=== PATIENT | male | born 1950 | race Caucasian/White ===

== ENCOUNTER → 2016-10-14 | Outpatient (CLI) | payer BC, OTHER | LOC: M WUC 08:09 | PROVIDERS: ATTEND Nurse Practitioner Family | DX: N40.0 Benign prostatic hyperplasia without lower urinary tract symptoms (principal) ==

== ENCOUNTER 2016-11-30 21:29 | Inpatient (IN) | payer BC ==
[~2016-11-30] VITALS: Ht 172.7 cm; Wt 106.5 kg
[2016-11-30] MEDS: FAMOTIDINE IV BAG 20 MG in APPROPRIATE DILUENT 1 EA IV SCH (02:05)
[2016-11-30] MEDS ORDERED: FISH100049 PO (21:41)
[2016-11-30] MEDS ORDERED: MULTCAP11 PO (21:41)
[2016-11-30] MEDS ORDERED: LISI10TA4 PO (21:41)
[2016-11-30] MEDS ORDERED: EPINEPHrine INJ 1 MG/ML 1ML VIAL/AMP IM STA (22:05)
[2016-11-30] MEDS ORDERED: methylPREDNISolone INJ 125 MG/2 ML VIAL (J2930) IV ONE (22:15)
[2016-11-30] MEDS ORDERED: KETAMINE HCL 200 MG/20 ML VIAL As Ordered ONE (22:28)
[2016-11-30] MEDS ORDERED: MIDAZOLAM INJ 2 MG/2 ML VIAL (J2250) As Ordered ONE ×2 (22:28→23:28)
[2016-11-30] MEDS ORDERED: PROPOFOL 200 MG/20 ML VIAL As Ordered ONE ×2 (22:29→23:30)
[2016-11-30 22:33] VITALS: O2SAT 97
[2016-11-30] MEDS ORDERED: GLYCOPYRROLATE INJ 0.2 MG/ML 2 ML VIAL As Ordered ONE (22:33)
[2016-11-30] MEDS ORDERED: VITMTA PO (22:36)
[2016-11-30] MEDS ORDERED: ALEV220T26 PO (22:36)
[2016-11-30] MEDS ORDERED: BISACODYL 10 MG SUPP PR PRN (22:45)
[2016-11-30] MEDS ORDERED: ACETAMINOPHEN TAB 650MG DOSE (2X325MG) NG PRN (22:45)
[2016-11-30] MEDS ORDERED: ONDANSETRON 4MG/2ML VIAL (J2405) IV PRN (22:45)
[2016-11-30] MEDS ORDERED: LIDOCAINE W/EPINEPHRINE 1% 20ML VIAL As Ordered ONE (22:53)
[2016-11-30] MEDS ORDERED: MIDAZOLAM INJ 2 MG/2 ML VIAL (J2250) IV PRN (23:00)
[2016-11-30] MEDS ORDERED: ALBUTEROL SULFATE 2.5 MG/0.5 ML INH NEB SOLN NEB PRN (23:00)
[2016-11-30] MEDS ORDERED: diphenhydrAMINE INJ 50MG/ML VIAL (J1200) IV PRN (23:15)
[2016-11-30] MEDS ORDERED: PROPOFOL 1,000 MG/100 ML VIAL As Ordered ONE (23:42)
[2016-12-01] VITALS (18 sets, daily range): BP systolic 104–196; BP diastolic 60–103
[2016-12-01] MEDS ORDERED: ACETAMINOPHEN 650 MG SUPP PR PRN (00:30)
[2016-12-01] MEDS ORDERED: PHENYLephrine HCL 500 MCG/5 ML (100MCG/ML) SYRINGE (J2370) As Ordered ONE (01:12)
--- NOTE | 2016-12-01 01:20 | REPUSA ---
CLINICAL HISTORY: Tracheostomy tube placement. COMMENTS: AP view of chest reveals mild central pulmonary venous congestion. No focal consolidation or mass les ion is seen. The cardiac silhouette is enlarged. The mediastinum and pulmonary vessels appear normal. Aorta is tor tuous. Degenerative changes are noted in the thoracic spine. IMPRESSION: Mild pulmonary congestion. Enlarged cardiac silhouette. Tortuous aorta. Midline tracheostomy tube is in good position. Thank you for your kind referral of this patient.
[2016-12-01 01:54] LABS: BASO % 0.2 % (0.0-1.0); EOS # 0.1 K/mm3 (0.0-0.50); EOS % 0.7 % (0.0-3.0); LARGE UNSTAINED CELL # 0.1 K/mm3 (0.0-0.4); LARGE UNSTAINED CELL % 0.5 % (0.0-4.0); LYMPH # 0.8 K/mm3 (1.5-4.5); LYMPH % 5.8 % (24.0-44.0); MEAN CORPUSCULAR HEMOGLOBIN 28.1 pg (27.0-33.0); MEAN CORPUSCULAR HGB CONC 33.4 g/dl (32.0-36.5); MEAN CORPUSCULAR VOLUME 84.2 fl (80.0-96.0); MONO # 0.2 K/mm3 (0.0-0.8); MONO % 1.6 % (0.0-5.0); NEUTROPHILS # 12.8 K/mm3 (1.8-7.7); NEUTROPHILS % 91.1 % (36.0-66.0); PLATELET COUNT, AUTOMATED 213 k/mm3 (150-450); RED CELL DISTRIBUTION WIDTH 13.1 % (11.5-14.5)
[2016-12-01] MEDS: D5W/0.45% SODIUM CHLORIDE 1,000 ML IV SCH ×2 (01:58→14:31)
[2016-12-01] MEDS ORDERED: PROPOFOL 1,000 MG/100 ML VIAL As Ordered ONE (02:15)
[2016-12-01 02:18] LABS: ABG BASE EXCESS 1.5 (-2.0-2.0); ABG DEVICE MECHAN. VENT; ABG HCO3 25.6 MEQ/L (22.0-26.0); ABG PARTIAL PRESSURE CO2 38.6 mmHg (35.0-45.0); ABG PARTIAL PRESSURE O2 83.2 mmHg (75.0-100.0); ABG STANDARD HCO3 25.8 MEQ/L (22.0-26.0); ABG TOTAL CO2 26.8 MEQ/L (23.0-31.0); ABG pH (ARTERIAL) 7.439 UNITS (7.350-7.450)
[2016-12-01] MEDS: PROPOFOL 1,000 MG in APPROPRIATE DILUENT 1 EA IV SCH ×3 (02:21→07:10)
[2016-12-01 02:29] LABS: ALBUMIN 3.1 GM/DL (3.2-5.2); ALBUMIN/GLOBULIN RATIO 0.84 (1.00-1.93); ALKALINE PHOSPHATASE 93 U/L (45-117); ALT/SGPT 12 U/L (12-78); ANION GAP 9 MEQ/L (8-16); AST/SGOT 17 U/L (15-37); BILIRUBIN,TOTAL 0.4 MG/DL (0.2-1.0); BLOOD UREA NITROGEN 22 MG/DL (7-18); CALCIUM LEVEL 7.9 MG/DL (8.8-10.2); CARBON DIOXIDE LEVEL 25 MEQ/L (21-32); CHLORIDE LEVEL 110 MEQ/L (98-107); CHOLESTEROL LEVEL 156 MG/DL (< 200); CREATININE FOR GFR 1.54 MG/DL (0.70-1.30); GLOMERULAR FILTRATION RATE 48.7 (>49); GLUCOSE, FASTING 149 MG/DL (80-110); MAGNESIUM LEVEL 1.9 MG/DL (1.8-2.4); PHOSPHORUS LEVEL 1.3 MG/DL (2.5-4.9); POTASSIUM SERUM 3.9 MEQ/L (3.5-5.1); SODIUM LEVEL 144 MEQ/L (136-145); TOTAL PROTEIN 6.8 GM/DL (6.4-8.2); TRIGLYCERIDES LEVEL 147 MG/DL (<150)
[2016-12-01] MEDS: ALBUTEROL SULFATE 2.5 MG/0.5 ML INH NEB SOLN NEB SCH ×3 (03:41→07:53)
[2016-12-01] MEDS: HEPARIN SOD (PORCINE) 5000 UNITS/ML VIAL SC SCH ×3 (06:05→21:12)
[2016-12-01] MEDS ORDERED: CHLORHEXIDINE GLUCONATE 0.12 % 15ML UDC (PERIDEX ORAL RINSE) MT SCH (09:00)
[2016-12-01] MEDS: methylPREDNISolone INJ 125 MG/2 ML VIAL (J2930) IV SCH (09:00)
[2016-12-01] MEDS: MORPHINE 2 MG/ML 1ML SYRINGE IV PRN ×2 (09:25→14:30)
[2016-12-01] MEDS: FAMOTIDINE IV BAG 20 MG in APPROPRIATE DILUENT 1 EA IV SCH ×2 (10:43→23:21)
[2016-12-01] MEDS ORDERED: POTASSIUM PHOSPHATE INJ 18 MMOL in D5W 250 ML IV ONE (11:00)
--- NOTE | 2016-12-01 11:19 | REP ---
PORTABLE CHEST: AP portable view of the chest is performed and compared to prior study earlier today. The current study is performed at 10:58 a.m. There is cardiomegaly again noted as well as mild vascular congestion. No new infiltrates are seen. Tracheostomy tube is again noted. IMPRESSION: Stable exam. Signed by Dmitri Torres MD 12/01/2016 04:58 P
--- NOTE | 2016-12-01 12:26 | CR ---
DATE OF CONSULTATION: 11/30/2016 Patient Dani Eaton presents with a history of angioedema. Patient presented to the emergency department and was transferred up to the operating room. Patient apparently had not received lisinopril and had not had it for a year. He developed swelling an hour and a half prior to presenting. Examination shows that he has a very large tongue. Fiberoptic examination shows edema of the larynx. Patient was in some distress but had good saturations of oxygen. Because of these findings, it was elected to proceed with a tracheotomy under local anesthesia.
[2016-12-01] MEDS ORDERED: hydrALAZINE INJ 20 MG/ML VIAL IV ONE (12:30)
--- NOTE | 2016-12-01 12:42 | HPE ---
DATE OF ADMISSION: 11/30/2016 NOTE: I was asked by the emergency department to emergently evaluate Mr. Eaton for angioedema requiring airway management. Mr. Eaton is a 66-year-old white male with a past medical history significant for hypertension who was in his usual state of health today. This evening, he took his lisinopril and then had dinner. Very shortly after taking lisinopril, he felt that his tongue was starting to swell. He started to gag and then threw up once. He proceeded to the emergency department where his tongue was found to be quite enlarged. Per my conversation with the emergency department, he was not complaining of any shortness of breath, chest pain or other discomfort, but that he felt there was something in the back of his throat. He was taken to the operating room. They were unable to fiberoptically intubate him and he had an emergent tracheostomy. Intraoperatively, he became quite hypertensive and received 5 mg of labetalol. He currently has a tracheostomy in place and is on the ventilator and is synchronous with the ventilator. He is sedated. ALLERGIES: No known drug allergies. MEDICATIONS ON ADMISSION: - lisinopril 10 mg by mouth daily - fish oil one capsule by mouth daily - multivitamin one tablet by mouth daily - Aleve 440 mg by mouth daily as needed pain PAST MEDICAL HISTORY: 1. Hypertension. HABITS: He does not drink significant alcohol. He is a nonsmoker. I do not know if he previously smoked. SOCIAL/FAMILY/REVIEW OF SYSTEMS: Unobtainable secondary to tracheostomy and sedation. PHYSICAL EXAMINATION: General: Mr. Eaton is lying in bed with a new tracheostomy and synchronous with the ventilator. Vital signs: Blood pressure 90s/40s with a map of 66, pulse in the 80s, afebrile, SpO2 in the high 90s on a FiO2 of 0.5. HEENT: Anicteric, pupils 2-3 mm and reactive. Nares: Patent bilaterally, moist mucosa. Oral pharynx protuberant. Tongue with moist mucosa. Neck: Fresh tracheostomy in place without masses. Trachea is midline. He is currently lying flat and I cannot assess JVP. Lymphs: Without cervical or supraclavicular lymphadenopathy. Chest: Normal shape. Lungs: Symmetric excursion, good air entry, no wheeze, rhonchi or crackle on tidal excursion. Normal I:E. No accessory muscle uses or retractions. Cardiovascular: Regular rate and rhythm with normal S1, S2. No murmur, rub or gallop appreciated. Abdomen: Diminished but present bowel sounds, soft, nondistended, no hepatosplenomegaly or masses appreciated. Extremities: Warm and well perfused, without clubbing, cyanosis or edema, strong pedal pulses bilaterally. LABS: There are no labs. Labs had been ordered in the emergency department but were no drawn prior to his going to the operating room. I reviewed his chest x-ray. It showed normal appearing cardiac silhouette and pulmonary vascular shadows. No acute infiltrates. There is a tracheostomy in place. IMPRESSION: 1. Angioedema and causing an upper airway obstruction leading to tracheostomy. This is likely secondary to lisinopril. 2. Hypertension. RECOMMENDATIONS: 1. We will keep him sedated and on mechanical ventilation tonight. 2. Hopefully in the morning, we will be able to stop sedation and be able to change him over the trache dome. He does not appear to have any pulmonary reason to require a ventilator. 3. Will not pass an nasogastric (NG) tube tonight given his angioedema. I will place him on D5 half normal saline to provide some dextrose as well as some support for insensible losses. 4. Anticipate there will be significant improvement in the next 48 hours. If there is not, we will then need to consider placement of a feeding tube for us to provide nutrition versus TPN. Critical care time: 40 minutes not including procedure time.
[2016-12-01] MEDS: METOPROLOL 5 MG/5 ML VIAL IV SCH ×2 (13:30→18:09)
[2016-12-01] MEDS ORDERED: diphenhydrAMINE INJ 50MG/ML VIAL (J1200) IV PRN (16:00)
[2016-12-01] MEDS: hydrALAZINE INJ 20 MG/ML VIAL IV SCH ×2 (17:37→21:12)
--- NOTE | 2016-12-01 18:09 | RO ---
DATE OF PROCEDURE: 11/30/2016 PREPROCEDURE DIAGNOSIS: Angioedema. POSTPROCEDURE DIAGNOSIS: Angioedema. PROCEDURE: Tracheotomy. SURGEON: Dr. Ashwin Saini DISTRIBUTOR OF DIRECTORIES: ANESTHESIA: FINDINGS: The patient had a swollen tongue and an attempt was made a fiberoptic nasotracheal intubation. On examination, however, there was a lot of edema of the supraglottic area and the cords could not even be seen, so I elected to do a tracheotomy under local anesthesia. DESCRIPTION OF PROCEDURE: The patient was prepped and draped in the usual manner. I marked out the incision. I divided skin and subcutaneous tissues and fat. I dissected down to the cricoid. I then divided the strap muscles in the midline. I then divided down to the trachea. There was a large isthmus overlying it. I divided this with cautery. Once this was done, then I exposed the second tracheal ring, and I made an incision in trachea. I divided the ring and then elevated the trachea and inserted the tracheotomy tube, a #6 Shiley cuffed fenestrated tube. Once this was done, the retractors were removed. I then sutured the trachea in with a #2-0 silk suture. Once this was done, then the trach ties were applied in the usual fashion. Trach dressing was placed. The patient tolerated the procedure well. There was minimal blood loss. The patient was then transferred to the recovery room in excellent condition.
[2016-12-02] VITALS (9 sets, daily range): BP systolic 116–159; BP diastolic 65–87
[2016-12-02] MEDS: hydrALAZINE INJ 20 MG/ML VIAL IV SCH ×3 (01:00→08:47)
[2016-12-02] MEDS: METOPROLOL 5 MG/5 ML VIAL IV SCH ×2 (01:00→06:19)
[2016-12-02] MEDS: D5W/0.45% SODIUM CHLORIDE 1,000 ML IV SCH (05:09)
[2016-12-02] MEDS: HEPARIN SOD (PORCINE) 5000 UNITS/ML VIAL SC SCH ×3 (05:09→21:52)
[2016-12-02 05:14] LABS: BASO % 0.1 % (0.0-1.0); EOS # 0.1 K/mm3 (0.0-0.50); EOS % 0.2 % (0.0-3.0); LARGE UNSTAINED CELL # 0.4 K/mm3 (0.0-0.4); LARGE UNSTAINED CELL % 1.3 % (0.0-4.0); LYMPH # 1.5 K/mm3 (1.5-4.5); MEAN CORPUSCULAR HEMOGLOBIN 28.2 pg (27.0-33.0); MEAN CORPUSCULAR VOLUME 85.4 fl (80.0-96.0); MONO # 1.4 K/mm3 (0.0-0.8); MONO % 4.6 % (0.0-5.0); NEUTROPHILS # 26.2 K/mm3 (1.8-7.7); NEUTROPHILS % 88.8 % (36.0-66.0); PLATELET COUNT, AUTOMATED 219 k/mm3 (150-450); RED CELL DISTRIBUTION WIDTH 13.5 % (11.5-14.5); WHITE BLOOD COUNT 29.5 K/mm3 (4.0-10.0)
[2016-12-02 05:24] LABS: ALBUMIN 3.1 GM/DL (3.2-5.2); CALCIUM LEVEL 7.6 MG/DL (8.8-10.2); CREATININE FOR GFR 1.33 MG/DL (0.70-1.30); GLOMERULAR FILTRATION RATE 57.6 (>49); POTASSIUM SERUM 4.2 MEQ/L (3.5-5.1)
[2016-12-02] MEDS: methylPREDNISolone INJ 125 MG/2 ML VIAL (J2930) IV SCH (08:47)
--- NOTE | 2016-12-02 08:55 | ECGEPIP ---
Stationary ECG Study [facility] - ED Test Date: 2016-11-30 Pat Name: DEBBY FIGUEROA Department: Room: [place] [address] Gender: M Brokerage Clerk: chi : 1950 Requested By: NATALYA Morin Order Number: [id number] Reading MD: Landy Peter Measurements Intervals [place] Rate: 107 P: 70 CA: 150 QRS: -19 QRSD: 97 T: 29 QT: 328 QTc: 438 Interpretive Statements SINUS TACHYCARDIA WITH OCCASIONAL SUPRAVENTRICULAR PREMATURE COMPLEXES MINIMAL ST DEPRESSION ABNORMAL RHYTHM ECG BASELINE ARTIFACT LIMITS INTERPRETATION Electronically Signed On 12-02-2016 8:55:24 EST by Landy Peter
[2016-12-02] MEDS ORDERED: METOPROLOL TART 25 MG TABLET PO SCH (09:00)
[2016-12-02] MEDS: OMEPRAZOLE 20 MG CAP PO SCH (12:11)
[2016-12-02] MEDS ORDERED: PRED10TA PO (16:05)
[2016-12-02] MEDS ORDERED: ATEN25TA PO (16:05)
[2016-12-03] MEDS: HEPARIN SOD (PORCINE) 5000 UNITS/ML VIAL SC SCH (05:59)
[2016-12-03 06:00] VITALS: BP 142/82
[2016-12-03 06:09] LABS: ALBUMIN 3.1 GM/DL (3.2-5.2); CALCIUM LEVEL 8.6 MG/DL (8.8-10.2); CREATININE FOR GFR 1.42 MG/DL (0.70-1.30); GLOMERULAR FILTRATION RATE 53.4 (>49); PHOSPHORUS LEVEL 2.4 MG/DL (2.5-4.9)
[2016-12-03 06:10] LABS: BASO % 0.1 % (0.0-1.0); EOS # 0.2 K/mm3 (0.0-0.50); EOS % 0.9 % (0.0-3.0); LARGE UNSTAINED CELL # 0.3 K/mm3 (0.0-0.4); LARGE UNSTAINED CELL % 1.2 % (0.0-4.0); LYMPH # 2.4 K/mm3 (1.5-4.5); MEAN CORPUSCULAR HEMOGLOBIN 28.9 pg (27.0-33.0); MEAN CORPUSCULAR HGB CONC 34.1 g/dl (32.0-36.5); MEAN CORPUSCULAR VOLUME 84.8 fl (80.0-96.0); MONO # 1.1 K/mm3 (0.0-0.8); MONO % 4.7 % (0.0-5.0); NEUTROPHILS # 19.7 K/mm3 (1.8-7.7); NEUTROPHILS % 83.1 % (36.0-66.0); PLATELET COUNT, AUTOMATED 210 k/mm3 (150-450); RED CELL DISTRIBUTION WIDTH 13.5 % (11.5-14.5); WHITE BLOOD COUNT 23.7 K/mm3 (4.0-10.0)
[2016-12-03] MEDS ORDERED: TYLE650T35 PO (08:18)
[2016-12-03] MEDS ORDERED: ATENOLOL 25 MG TAB PO SCH (09:00)
[2016-12-03] MEDS: methylPREDNISolone INJ 125 MG/2 ML VIAL (J2930) IV SCH (09:00)
[2016-12-03 09:01] VITALS: BP 142/82
[2016-12-03] MEDS: OMEPRAZOLE 20 MG CAP PO SCH (09:01)
--- NOTE | 2016-12-03 12:16 | IPN ---
DATE: 12/02/2016 Patient seen and examined at bedside. Chart has been reviewed. Patient is anxious to go home. Currently with a trach collar, FiO2 of 40%. He is unable to speak and writes down his questions at the bedside on the clipboard. He is afebrile overnight. No issues per nursing. Continued on intravenous (IV) fluids and nothing by mouth status until re-evaluated by ENT, Dr. Saini. Temperature 98.5, pulse 87, respiratory rate 20, blood pressure 116/69, 96%, 40% FiO2, trach collar. Generally, patient is awake, alert, oriented and nods, unable to speak via trach. Anicteric sclera. Patent nares. Tongue was midline. Moist mucous membranes. The trach was midline. Lungs: Clear to auscultation. No wheezing, rales or rhonchi. Heart: S1, S2. Sinus rhythm. Abdomen: Obese, soft, nontender, nondistended. Positive bowel sounds. No hepatosplenomegaly. Extremities: No pitting edema, cyanosis or clubbing. LABORATORY DATA: White count 29.5, hemoglobin 14, hematocrit 44, platelet count 219. Sodium 145, potassium 4.2, chloride 110, bicarbonate 22, BUN 22, creatinine 1.3, glucose of 143. Phosphate 3, magnesium of 2, albumin of 3.1. MRSA screen pending. Respiratory panel is negative. Chest x-ray: Stable exam. ASSESSMENT AND PLAN: 66-year-old male with history of hypertension started on lisinopril and developed angioedema requiring emergency tracheostomy. Patient was quite hypertensive, was placed on IV labetalol. Trach placed. IMPRESSION: 1. Angioedema secondary to lisinopril. Patient had received emergency trach. Currently on IV Solu-Medrol to decrease laryngeal edema. Defer to Dr. Saini, ENT regarding decannulation and repeat laryngoscopy. 2. npo due to persistent laryngeal edema. Patient is continued on as needed Benadryl, famotidine, IV morphine - pain. IV fluid D5 normal saline 75 an hour for hydration. Keep nothing by mouth until safe and no signs of aspiration. Defer to Dr. Saini regarding change in diet. Currently nothing by mouth status. 3. Hypertension, uncontrolled. Nothing by mouth status for now due to laryngeal edema from angioedema caused by lisinopril. On IV Lopressor 5 every 6 hours and hydralazine. 4. Chronic kidney disease, stage III, at baseline creatinine. MTDD
--- NOTE | 2016-12-04 14:28 | DSES ---
DATE OF ADMISSION: 11/30/2016 DATE OF DISCHARGE: 12/03/2016 CONSULTANTS: Dr. Saini, ear, nose and throat; pulmonary capacity management specialist , Mariluz Garrett. PRIMARY DISCHARGE DIAGNOSES: 1. Angioedema secondary to lisinopril requiring tracheostomy placement for emergent airway. 2. Uncontrolled hypertension. 3. Chronic kidney disease. DISCHARGE MEDICATIONS: - atenolol 25 mg daily - prednisone tapered dose - fish oil one capsule daily - multivitamin one capsule daily DISCHARGE INSTRUCTIONS: Avoid all angiotension converting enzyme inhibitors due to angioedema causing restricted airway requiring emergent tracheostomy. PROCEDURES DURING THIS ADMISSION: Emergency tracheostomy secondary to angioedema by Dr. Saini on 11/30/2016 with fiberoptic laryngoscopy times two; one on 11/30/2016 and the other on 12/02/2016. HOSPITAL COURSE: This is a 66-year-old male with history of hypertension, hyperlipidemia, had been in his usual state of health until he was placed on lisinopril for blood pressure. Complained of tongue swelling, gagging and vomiting. Patient was seen in the emergency room on 11/30/2016. Dr. Garrett , capacity management specialist, was emergently contacted, as the patient was at risk of respiratory failure secondary to severe angioedema. Patient became hypertensive , receive 5 mg intravenous (IV) labetalol in the emergency room (ER). Emergent tracheostomy was placed by Dr. Saini. Patient was placed on ventilator with synchronous and was sedated and transferred to intensive care unit (ICU). Patient's angioedema cause upper airway obstruction, leading to emergent tracheostomy, most likely secondary to lisinopril. For hypertension, he was given intravenous metoprolol and IV hydralazine as needed. No nasogastric tube was given due to severe angioedema. He was kept on IV fluids with D5-half normal saline. On 12/02/2016, the patient was kept on IV Solu-Medrol daily to decrease edema. He had repeat laryngoscopy by Dr. Saini on 12/02/2016, was decannulated. Patient's diet was advanced. He had no further issues overnight. No complaints of shortness of breath, saturating 92% to 95% on room air with no stridor on examination. Patient is discharged in stable condition with the following laboratory data: White count 23.7, hemoglobin 15, hematocrit 44, platelet count 210. Sodium 148, potassium 4, chloride 112, bicarbonate 26, BUN 28, creatinine 1.42, glucose 111. MICROBIOLOGY: Methicillin-resistant Staphylococcus aureus (MRSA) and respiratory panel are both negative. Chest x-ray on 12/01/2016: No active disease. Midline tracheostomy tube is in good position. There is no active disease, mild pulmonary congestion and large cardiac silhouette. MTDD
== END 2016-12-03 10:06 | disposition home health service (06) | DRG 121 ==
LOC: M ED 22:28 → M ED INP 22:29 → M ICU 12-01 00:52 → M MS5PR 12-02 21:47
PROVIDERS: ADMIT Internal Medicine Pulmonary Disease; ATTEND General Practice
PROC: 0B110F4 Bypass Trachea to Cutaneous with Tracheostomy Device, Open Approach (ICD-10-PCS; 2016-11-30)
PROC: 5A1935Z Respiratory Ventilation, Less than 24 Consecutive Hours (ICD-10-PCS; principal; 2016-11-30 22:46)
DX: J98.8 Other specified respiratory disorders (principal); T78.3XXA Angioneurotic edema, initial encounter; N18.3 Chronic kidney disease, stage 3 (moderate); I12.9 Hypertensive chronic kidney disease with stage 1 through stage 4 chronic kidney disease, or unspecified chronic kidney disease; T46.4X5A Adverse effect of angiotensin-converting-enzyme inhibitors, initial encounter; Z79.899 Other long term (current) drug therapy; E78.5 Hyperlipidemia, unspecified

== ENCOUNTER → 2016-12-05 | Outpatient (REF) | payer BC ==
[~2016-12-05] MED LIST: ALEV220T26 PO; ATEN25TA PO; FISH100049 PO; LISI10TA4 PO; MULTCAP11 PO; PRED10TA PO; TYLE650T35 PO; VITMTA PO
== END ==
LOC: M LAB REF 10:55
PROVIDERS: ATTEND Nurse Practitioner Family
DX: I10 Essential (primary) hypertension (principal); Z93.0 Tracheostomy status; D72.829 Elevated white blood cell count, unspecified

== ENCOUNTER → 2016-12-08 | Outpatient (CLI) | payer BC ==
--- NOTE | 2016-12-08 13:36 | REP ---
Prostate sonography: History: Elevated PSA Sonographic findings: Trans rectal prostate sonography demonstrates unremarkable seminal vesicles. Prostate gland is heterogeneously enlarged with calcifications and cystic changes noted. Glandular dimensions are measured at 4.4 x 4.1 x 5.6 cm with a calculated glandular volume of 52.8 ml. Transrectal sonographic guidance provided to Dr. Lemon who performed trans rectal ultrasound guided needle biopsy procedure . Signed by Devin Bo MD 12/08/2016 01:27 P
== END ==
LOC: M SMT PRO 08:52
PROVIDERS: ATTEND Nurse Practitioner Women's Health
DX: C61 Malignant neoplasm of prostate (principal); Z88.8 Allergy status to other drugs, medicaments and biological substances
CPT/HCPCS: 76872; 76942; G0416

== ENCOUNTER → 2016-12-27 | Outpatient (CLI) | payer BC ==
[2016-12-27 16:04] LABS: MEAN CORPUSCULAR HEMOGLOBIN 28.5 pg (27.0-33.0); MEAN CORPUSCULAR HGB CONC 33.7 g/dl (32.0-36.5); MEAN CORPUSCULAR VOLUME 84.5 fl (80.0-96.0); RED CELL DISTRIBUTION WIDTH 13.1 % (11.5-14.5)
--- NOTE | 2016-12-27 16:10 | REP ---
CHEST, TWO VIEWS: COMPARISON: 07/30/2007 and 12/01/2016 There is no acute infiltrate. There is mild cardiomegaly. Mediastinal silhouette is unchanged. There are mild degenerative changes of the spine. IMPRESSION: No acute pulmonary disease. Signed by Dmitri Torres MD 12/27/2016 05:42 P
[2016-12-27 16:13] LABS: INR 1.03
[2016-12-27 16:14] LABS: CALCIUM LEVEL 8.6 MG/DL (8.8-10.2); CREATININE FOR GFR 1.39 MG/DL (0.70-1.30); GLOMERULAR FILTRATION RATE 54.8 (>49); POTASSIUM SERUM 3.7 MEQ/L (3.5-5.1)
--- NOTE | 2016-12-27 22:23 | ECGEPIP ---
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 Decreased heart rate, no PACs, improved repolarization compared with 11/30/2016. Electronically Signed On 12-27-2016 22:22:50 EDT by Juanpablo Mills
== END ==
LOC: M LAB 15:03
PROVIDERS: ATTEND Urology
DX: C61 Malignant neoplasm of prostate (principal)

== ENCOUNTER 2017-01-16 05:43 | Inpatient (IN) | payer BC ==
[2017-01-16] VITALS (9 sets, daily range): BP systolic 109–143; BP diastolic 57–93
[~2017-01-16] VITALS: Ht 172.7 cm; Wt 107.9 kg
[2017-01-16] MEDS ORDERED: LR 1,000 ML IV SCH ×3 (06:00→13:00)
[2017-01-16] MEDS ORDERED: PROPOFOL 200 MG/20 ML VIAL As Ordered ONE (06:49)
[2017-01-16] MEDS ORDERED: MIDAZOLAM INJ 2 MG/2 ML VIAL (J2250) As Ordered ONE (06:49)
[2017-01-16] MEDS ORDERED: fentaNYL 250 MCG/5 ML INJECTION (J3010) As Ordered ONE (06:49)
[2017-01-16] MEDS ORDERED: ROCURONIUM BROMIDE 50 MG/5 ML VIAL As Ordered ONE ×2 (06:49→08:39)
[2017-01-16] MEDS ORDERED: LIDOCAINE 2% INJ 100 MG/5 ML SDV (FOR ANES.) As Ordered ONE (06:50)
[2017-01-16] MEDS ORDERED: ATENOLOL 25 MG TAB PO ONE (07:30)
[2017-01-16] MEDS ORDERED: SUCCINYLCHOLINE 100 MG/5 ML SYRINGE (J0330) As Ordered ONE (07:36)
[2017-01-16] MEDS ORDERED: ATENOLOL 25 MG TAB PO SCH (09:00)
[2017-01-16] MEDS ORDERED: HYDROmorphone HCL 2 MG/ML 1ML VIAL (J1170) As Ordered ONE (09:35)
[2017-01-16] MEDS ORDERED: ePHEDrine SULFATE 25 MG/5 ML(5MG/ML) SYRINGE As Ordered ONE (09:56)
[2017-01-16] MEDS ORDERED: PHENYLephrine HCL 500 MCG/5 ML (100MCG/ML) SYRINGE (J2370) As Ordered ONE (09:56)
[2017-01-16] MEDS ORDERED: GLYCOPYRROLATE INJ 0.2 MG/ML 2 ML VIAL As Ordered ONE (11:03)
[2017-01-16] MEDS ORDERED: ONDANSETRON 4MG/2ML VIAL (J2405) As Ordered ONE (11:03)
[2017-01-16] MEDS ORDERED: NEOSTIGMINE 1MG/ML 5 ML SYRINGE (J2710) As Ordered ONE (11:03)
[2017-01-16] MEDS ORDERED: NALOXONE INJ 0.4 MG/1 ML VIAL (J2310) As Ordered ONE (12:10)
[2017-01-16] MEDS ORDERED: HYDROmorphone HCL 1 MG/ML SYRINGE (J1170) As Ordered ONE (12:46)
[2017-01-16] MEDS: HYDROmorphone HCL 1 MG/ML SYRINGE (J1170) IV PRN ×4 (12:48→14:15)
[2017-01-16] MEDS ORDERED: MEPERIDINE INJ 25 MG/ML VIAL (J2175) IV PRN (13:00)
[2017-01-16] MEDS ORDERED: ONDANSETRON 4MG/2ML VIAL (J2405) IV PRN ×2 (13:00→13:30)
[2017-01-16] MEDS ORDERED: METOCLOPRAMIDE INJ 10MG/2ML VIAL (J2765) IV PRN (13:00)
[2017-01-16] MEDS ORDERED: fentaNYL 100 MCG/2 ML INJECTION (J3010) IV PRN (13:00)
[2017-01-16] MEDS ORDERED: PERCOCET 5MG/325MG TAB PO PRN (13:00)
[2017-01-16 13:04] LABS: ABG BASE EXCESS -4.2 (-2.0-2.0); ABG HCO3 22.8 MEQ/L (22.0-26.0); ABG PARTIAL PRESSURE CO2 49.2 mmHg (35.0-45.0); ABG PARTIAL PRESSURE O2 94.7 mmHg (75.0-100.0); ABG TOTAL CO2 24.3 MEQ/L (23.0-31.0); ABG pH (ARTERIAL) 7.284 UNITS (7.350-7.450)
[2017-01-16 13:08] LABS: MEAN CORPUSCULAR HEMOGLOBIN 28.7 pg (27.0-33.0); MEAN CORPUSCULAR HGB CONC 32.8 g/dl (32.0-36.5); MEAN CORPUSCULAR VOLUME 87.4 fl (80.0-96.0); RED CELL DISTRIBUTION WIDTH 13.6 % (11.5-14.5); WHITE BLOOD COUNT 20.2 K/mm3 (4.0-10.0)
--- NOTE | 2017-01-16 13:18 | REP ---
PORTABLE CHEST: AP portable view of the chest is performed and compared to prior study of 12/27/2016. No infiltrate is seen in either lung. Cardiomediastinal silhouette appears magnified. Free air is seen in the abdomen beneath the right diaphragm, presumably postsurgical. Signed by Dmitri Torres MD 01/16/2017 05:25 P
[2017-01-16] MEDS ORDERED: KCL 20MEQ IN D5/.45NACL 1000ML As Ordered ONE (13:22)
[2017-01-16] MEDS ORDERED: KETOROLAC 30 MG/ML VIAL (J1885) As Ordered ONE (13:22)
[2017-01-16 13:28] LABS: CALCIUM LEVEL 8.9 MG/DL (8.8-10.2); CREATININE FOR GFR 1.3 MG/DL (0.70-1.30); GLOMERULAR FILTRATION RATE 59.2 (>49); POTASSIUM SERUM 4.2 MEQ/L (3.5-5.1)
[2017-01-16] MEDS: KETOROLAC 30 MG/ML VIAL (J1885) IV SCH ×2 (13:33→23:29)
[2017-01-16] MEDS: KCL 20MEQ IN D5/0.45NS 1000ML 1,000 ML IV SCH ×2 (13:34→21:33)
[2017-01-16] MEDS ORDERED: LABETALOL HCL 100 MG/20 ML VIAL IV SCH (13:45)
[2017-01-16] MEDS ORDERED: LABETALOL HCL 100 MG/20 ML VIAL IV ONE (14:00)
[2017-01-16] MEDS: PANTOPRAZOLE 40MG INJ (PROTONIX) (C9113) IV SCH (16:17)
[2017-01-16] MEDS: ACETAMINOPHEN 650MG ER TAB (TYLENOL ARTHRITIS) PO SCH ×2 (17:13→21:33)
[2017-01-16] MEDS: LevoFLOXacin 500 MG TABLET PO SCH (17:13)
--- NOTE | 2017-01-16 17:46 | CCN ---
DATE: 01/16/2017 CRITICAL CARE NOTE I was called to evaluate this 66-year-old male for acute respiratory failure in recovery room, successfully having completed a robotic prostatectomy. In the recovery room, the patient was found to be hypoxic and hypoventilatory. Noninvasive positive pressure ventilation has been applied. On review of the patient's electronic health record, there is a history of hypertension, recently suffered angioedema secondary to angiotensin-converting enzyme (CHLOE) inhibitors and required a tracheostomy on 12/01. The tracheostomy was removed and he was sent home. He has chronic kidney disease as well. At bedside, his temperature is 96.9, pulse rate 75, respirations 20, blood pressure 130/75. He is somnolent. HEENT: Oral and nasal mucosa are pink. Jugular veins are not distended. Neck is quite stovall. The heart sounds are regular without appreciable murmur. There is subcutaneous air appreciable in the chest wall, none dissecting in the neck. Breath sounds are diminished bilaterally. There are no focal adventitial breath sounds appreciated. Abdomen is soft and obese. Extremities: Show trace edema. DIAGNOSTIC STUDIES: We obtained a stat portable chest x-ray at the bedside. There is no evidence of pneumothorax and no evidence of infiltrate. LABORATORY STUDIES: White cell count is 20.2, hemoglobin 14.6, hematocrit 44.6, platelet count 192,000. Sodium is 141, potassium 4.2, chloride 106, CO2 30, BUN 13, creatinine 1.3, glucose 123. An arterial blood gas was obtained. The pH was 7.28, pCO2 49, pO2 97. The primary problem requiring critical attention is acute respiratory failure. Noninvasive positive pressure ventilation will be adjusted based on the blood gases to increase minute ventilation and will make arrangements for him to be transferred now to the intensive care unit. Subcutaneous air. I suspect that this is likely related to insufflation of the abdomen for the procedure. There is no pneumothorax on the chest x-ray. Close monitoring will be necessary. ANGIOTENSIN-CONVERTING ENZYME (CHLOE) ALLERGY with angioedema requiring tracheostomy on 12/01. The neck site is clean and dry. Ulcer prophylaxis will be addressed with Protonix, deep vein thrombosis (DVT) prophylaxis with sequential hose. The patient's condition is critical. Prognosis is guarded. 1 hour and 15 minutes was spent in the provision of bedside critical care and coordination.
[2017-01-16] MEDS: MORPHINE 4 MG/ML 1ML SYRINGE IV PRN ×2 (17:51→23:55)
--- NOTE | 2017-01-16 20:03 | RO ---
DATE OF PROCEDURE: 01/16/2017 PREOPERATIVE DIAGNOSIS: Prostate cancer. POSTOPERATIVE DIAGNOSIS: Prostate cancer. SURGERY PERFORMED: Robotic-assisted radical prostatectomy plus bilateral pelvic lymph node dissection. SURGEON: Haroon Lemon MD PCB DESIGNER: Constanza Polanco SECOND NUTRITION COUNSELOR: Tj Lao ANESTHESIA: General. COMPLICATIONS: None. ESTIMATED BLOOD LOSS: 400 mL HISTORY OF PRESENT ILLNESS: This is a 66-year-old male patient with clinical stage [id number] prostate cancer, Andrez 7, (3+4). The patient has consented for a robotic-assisted radical prostatectomy, plus bilateral pelvic lymph node dissection. Of note, the patient has a sexual health inventory for men (KRIS) score 1 point. PROCEDURE DESCRIPTION: With the patient under general anesthesia in supine modified low lithotomy position, after prepping and draping the area of concern, which included the entire genitalia and abdomen, we started by dilating the urethra with Tien sounds and passed a Dawkins catheter #16-Slovak Dawkins, inflated the balloon to 10 mL and placed it to gravity. We then proceeded to do an incision infraumbilically for about 2 cm in length. We opened the fascia of the rectus muscle 2 cm vertically in the midline below the umbilicus and then opened the peritoneal cavity, opened the extraperitoneal space, balloon SpaceMaker. With dissected the extraperitoneal space of Retzius. We then proceeded to actually place a trocar and inflated the balloon trocar to 20 mL. We insufflated the retroperitoneal space of Retzius at a maximum pressure of 20 at high flow. With a hand held robotic camera with 30 degrees lens, we placed the other trocars in fan shaped manner, two on the right side, 8 mm metallic trocars by each other, 8 cm away from each other and two on the left side, one 12 mm VersaStep 6 cm away from the midline and 8 cm away from this one, another 8 mm metallic trocar in fan shaped manner. We then positioned the patient and steep Trendelenburg position and docked the robot. On the left hand we used monopolar scissors, on the right hand we used bipolar PK and a ProGrasp. We then proceeded to actually dissect the periprostatic fat and uncovered the prostate completely off of the periprostatic fat. We then proceeded to actually dissect and open the endopelvic fascia from base to apex and then placed a dorsal vein stitch with a CT-1 needle and a #0 Vicryl times three. We then proceeded to open the anterior bladder neck with monopolar scissors and deflated the balloon and grabbed the Dawkins catheter and put it to traction with the third arm. We then cut the posterior bladder neck and the posterior detrusor muscle following into the vas deferens. We dissected both vas deferens and cut them with monopolar scissors. We grabbed them with a third arm and put the vas deferens under traction anteriorly, this placed in the direction of the direction of the vas seminal vesicles. We dissected each seminal vesicle and fulgurated the bleeding vessels. We grabbed the seminal vesicles and the vas deferens with the third arm anteriorly and put this placed into traction, the posterior Denonvilliers fascia. We then incised the posterior Denonvilliers fascia with monopolar scissors. We dissected the rectum away from base to apex and then secured the pedicles of the prostate with Hem-o-Loks clipper pliers. We then proceeded to actually dissect the prostate from base to apex. Once the prostate was attached to the dorsal vein complex we cut the dorsal vein complex, cut the urethra and removed the Dawkins. The prostate was placed into a 10 mm Endo Catch bag. We then proceeded to do our posterior reconstruction with two needle holders and a #2-0 V-Loc in a running fashion. We reconstructed the posterior Denonvilliers fascia in a running fashion. We then proceeded to place out double needle Quill stitch, #2-0 barbed suture, absorbable, started at 6-o'clock in the bladder neck, outside in and inside out in the urethra in running 360 degrees around the clock. We then placed a #20-Slovak Dawkins catheter into the bladder and inflated the balloon to 20 mL and tied the knot of the Quill stitch and cut the needles, took the needles out. We tested anastomosis by placing 200 mL of normal saline. There was no leak. We then proceeded to actually dissect the pelvic lymph nodes bilaterally. Our limits of dissection were inferiorly, the lacunar ligament, medially the bladder, posteriorly the pelvic sidewall, superiorly the bifurcation of hypogastric arteries, anteriorly the iliac artery. We secured hemostasis with bipolar PK and Hem-o-Loks. We placed in a 10 mm Endo Catch bag, the pelvic lymph node dissection on the left side as well as on the right side. We then proceeded to undock the third arm and took the third instrument out. Through the third port on the right side we introduced a GORAN drain, a round drain into the pelvic Retzius space. We then proceeded to actually remove the trocar and suture secured the drain with #3-0 nylon and placed the drain to bulb suction. We then took all the trocars out and took the specimens through the midline, the prostate and seminal vesicles in one Endo Catch bag. The left pelvic lymph node dissection in separate Endo Catch bag and the right pelvic lymph node dissection in another separate Endo Catch bag. We then closed the anterior fascia of the rectus muscle in a running fashion with a UR6 #2-0 Vicryl in a running fashion. We then closed the skin with subcuticular stitches of #4-0 Monocryl. We placed Mastisol, Steri-Strips and Tegaderm on top of the incision site. PLAN: The patient will be go to the recovery room and then to the floor. Once he is tolerating pain and ambulating very well he will be discharged home.
[2017-01-17] VITALS (8 sets, daily range): BP systolic 96–138; BP diastolic 55–83
[2017-01-17] MEDS: ACETAMINOPHEN 650MG ER TAB (TYLENOL ARTHRITIS) PO SCH ×2 (05:28→13:30)
[2017-01-17] MEDS: KCL 20MEQ IN D5/0.45NS 1000ML 1,000 ML IV SCH ×2 (05:29→14:53)
[2017-01-17 05:34] LABS: CALCIUM LEVEL 7.4 MG/DL (8.8-10.2); CREATININE FOR GFR 1.34 MG/DL (0.70-1.30); GLOMERULAR FILTRATION RATE 57.1 (>49)
[2017-01-17 05:36] LABS: MEAN CORPUSCULAR VOLUME 89.1 fl (80.0-96.0); WHITE BLOOD COUNT 12.4 K/mm3 (4.0-10.0)
[2017-01-17 05:47] LABS: ABG BASE EXCESS 0.7 (-2.0-2.0); ABG HCO3 25.4 MEQ/L (22.0-26.0); ABG PARTIAL PRESSURE CO2 40.9 mmHg (35.0-45.0); ABG PARTIAL PRESSURE O2 111.8 mmHg (75.0-100.0); ABG STANDARD HCO3 25.2 MEQ/L (22.0-26.0); ABG TOTAL CO2 26.7 MEQ/L (23.0-31.0); ABG pH (ARTERIAL) 7.411 UNITS (7.350-7.450)
[2017-01-17 06:14] LABS: MEAN CORPUSCULAR HEMOGLOBIN 29.3 pg (27.0-33.0); MEAN CORPUSCULAR HGB CONC 33.3 g/dl (32.0-36.5); RED CELL DISTRIBUTION WIDTH 13.8 % (11.5-14.5)
--- NOTE | 2017-01-17 08:04 | REP ---
Clinical: Pneumoperitoneum. Comparison: 01/16/2017. Findings: Mediastinum and cardiac silhouette stable; mild cardiomegaly. Lung clifford suggest mild interstitial edema and possible right lower lobe atelectasis. Pneumoperitoneum again noted similar/improved when compared to prior examination. Impression: Cannot exclude interstitial edema or right lower lobe atelectasis. Pneumoperitoneum again noted. Signed by Gregory Ruano MD 01/17/2017 07:56 A
[2017-01-17] MEDS: KETOROLAC 30 MG/ML VIAL (J1885) IV SCH (08:39)
[2017-01-17] MEDS ORDERED: ATENOLOL 25 MG TAB PO SCH (09:00)
[2017-01-17] MEDS: PANTOPRAZOLE 40MG INJ (PROTONIX) (C9113) IV SCH (14:57)
[2017-01-17] MEDS ORDERED: LEVA500T PO (16:30)
[2017-01-17] MEDS: LevoFLOXacin 500 MG TABLET PO SCH (17:25)
--- NOTE | 2017-01-18 07:01 | DSES ---
DATE OF ADMISSION: 01/16/2017 DATE OF DISCHARGE: 01/17/2017 ADMISSION DIAGNOSIS: Prostate cancer. DISCHARGE DIAGNOSIS: Prostate cancer. SURGERY PERFORMED: Robotic-assisted radical prostatectomy, plus bilateral pelvic lymph node dissections. SURGEON: Dr. Haroon Lemon. HISTORY OF PRESENT ILLNESS: This is a 66-year-old male patient with a clinical state CT1c NX MX prostate cancer, [place] 7, 3 plus 4. The patient consented for robotic-assisted radial prostatectomy plus bilateral pelvic lymph node dissections, and he was taken to the operating room (OR) on 01/16/2017. After this procedure, he was admitted to the hospital. HOSPITALIZATION COURSE: The patient after surgery was extubated and in the recovery had respiratory distress requiring bilevel positive airway pressure (BiPAP). For this reason, consultation to pulmonary critical care was conducted, and after evaluating the patient, he was admitted to the surgical intensive care unit (SICU) for 23-hour observation. In the SICU about four hours after BiPAP, he was discontinued and put on room air and was respirating well. He has a history of having had a tracheostomy due to LISINOPRIL ALLERGY one month ago. He is also morbidly obese. After that, he started tolerating a regular diet six hours after surgery. He was out of bed and ambulating very well. On postoperative day one, he is ambulating very well with assistance. Dawkins catheter was draining clear urine. Devin-Lucero (GORAN) output was 40 mL in the last shift. He was tolerating a regular diet, and pain was controlled with oral pain medication Tylenol Extended Release. For this reason, the patient requested to go home and we agreed upon this after the pulmonary critical care actually signed off. For this reason we are sending him home today with antibiotic Levaquin 500 mg one tablet by mouth every day and Tylenol 650 mg extended release one tablet by mouth every six hour as needed for pain. He will have Dawkins catheter to gravity. He may shower. No sitz bath. No driving for two weeks. No heavy weight lifting above 20 pounds for one month. He will followup in 10 days for a voiding trial. His pathology report has come back. He has a PT3a N0 MX adenocarcinoma of the prostate gland, [place] 8. Margins were negative.
== END 2017-01-17 17:35 | disposition home or self-care (01) | DRG 484 ==
LOC: M OR 05:43 → M ICU 15:03
PROVIDERS: ADMIT Urology; ATTEND Urology
PROC: 07BC4ZX Excision of Pelvis Lymphatic, Percutaneous Endoscopic Approach, Diagnostic (ICD-10-PCS; 2017-01-16)
PROC: 0VT04ZZ Resection of Prostate, Percutaneous Endoscopic Approach (ICD-10-PCS; principal; 2017-01-16 07:30)
DX: C61 Malignant neoplasm of prostate (principal); J95.821 Acute postprocedural respiratory failure

== ENCOUNTER → 2017-01-30 | Outpatient (CLI) | payer BC ==
[~2017-01-30] MED LIST changes: +LEVA500T PO
== END ==
LOC: M WUC 09:19
PROVIDERS: ATTEND Nurse Practitioner Women's Health
DX: C61 Malignant neoplasm of prostate (principal)

== ENCOUNTER → 2017-02-05 | Outpatient (CLI) | payer BC ==
--- NOTE | 2017-02-05 13:36 | REP ---
Whole body radionuclide bone scan: History: Prostate carcinoma. No comparison bone scans. Technique: 20.7 millicuries technetium 99m MDP is injected and standard whole body bone scan imaging was acquired. Scintigraphic findings: There is degenerative facet uptake in the right side of the mid cervical spine and to a lesser extent in the right side of the mid thoracic spine. There is mild arthritic uptake in the acromioclavicular joints bilaterally. There is increased uptake in the posterior calcaneus on the right at the Achilles calcaneal insertion. Minimal uptake on the left at this level. Impression: No scintigraphic evidence of skeletal metastatic disease. Signed by Devin Bo MD 02/05/2017 03:17 P
== END ==
LOC: M RAD 09:20
PROVIDERS: ATTEND Nurse Practitioner Women's Health
DX: C61 Malignant neoplasm of prostate (principal)

== ENCOUNTER → 2017-02-17 | Outpatient (REF) | payer BC | LOC: M LAB REF 14:00 | PROVIDERS: ATTEND Nurse Practitioner Women's Health | DX: C61 Malignant neoplasm of prostate (principal) ==

== ENCOUNTER → 2017-04-17 | Outpatient (REF) | payer BC ==
[~2017-04-17] MED LIST changes: +LEVA1TAB2 PO; -LEVA500T PO; -PRED10TA PO; +PRED10TA2 PO
== END ==
LOC: M SMT 16:16
PROVIDERS: ATTEND Urology
DX: R30.0 Dysuria (principal)

== ENCOUNTER → 2017-04-20 | Outpatient (REF) | payer BC | LOC: M SMT 13:09 | PROVIDERS: ATTEND Nurse Practitioner Women's Health | DX: R30.0 Dysuria (principal) ==

== ENCOUNTER → 2017-05-19 | Outpatient (CLI) | payer BC | LOC: M WUC 08:26 | PROVIDERS: ATTEND Urology | DX: C61 Malignant neoplasm of prostate (principal) ==

== ENCOUNTER → 2017-05-30 | Outpatient (REF) | payer BC | LOC: M SMT 17:11 | PROVIDERS: ATTEND Urology | DX: C61 Malignant neoplasm of prostate (principal) ==

== ENCOUNTER → 2017-08-11 | Outpatient (CLI) | payer BC | LOC: M WUC 08:13 | PROVIDERS: ATTEND Urology | DX: C61 Malignant neoplasm of prostate (principal) ==

== ENCOUNTER → 2017-11-09 | Outpatient (CLI) | payer BC ==
[2017-11-09 20:07] LABS: PROSTATIC SPECIFIC AG MONITOR < 0.01 NG/ML (< 4.0)
== END ==
LOC: M WUC 15:40
DX: Z85.46 Personal history of malignant neoplasm of prostate (principal)
CPT/HCPCS: 84153

== ENCOUNTER → 2018-02-25 | Outpatient (CLI) | payer BC ==
[2018-02-25 09:38] LABS: ALBUMIN 3.5 GM/DL (3.2-5.2); ALBUMIN/GLOBULIN RATIO 0.92 (1.00-1.93); ALKALINE PHOSPHATASE 103 U/L (45-117); ALT/SGPT 19 U/L (12-78); ANION GAP 6 MEQ/L (8-16); AST/SGOT 23 U/L (7-37); BILIRUBIN,TOTAL 0.8 MG/DL (0.2-1.0); BLOOD UREA NITROGEN 14 MG/DL (7-18); CALCIUM LEVEL 8.8 MG/DL (8.8-10.2); CARBON DIOXIDE LEVEL 29 MEQ/L (21-32); CHLORIDE LEVEL 108 MEQ/L (98-107); CHOLESTEROL LEVEL 174 MG/DL (<200); CHOLESTEROL RISK RATIO 4.833 (<5); CREATININE FOR GFR 1.24 MG/DL (0.70-1.30); GLOMERULAR FILTRATION RATE > 60.0 (>49); GLUCOSE, FASTING 111 MG/DL (70-100); HDL CHOLESTEROL 36 MG/DL (>40); LDL CHOLESTEROL 116.6 MG/DL (<100); NON-HDL-C 138 MG/DL; POTASSIUM SERUM 4.2 MEQ/L (3.5-5.1); PROSTATIC SPECIFIC AG MONITOR < 0.01 NG/ML (< 4.0); SODIUM LEVEL 143 MEQ/L (136-145); TOTAL PROTEIN 7.3 GM/DL (6.4-8.2); TRIGLYCERIDES LEVEL 107 MG/DL (<150)
== END ==
LOC: M WUC 08:18
DX: I10 Essential (primary) hypertension (principal); Z85.46 Personal history of malignant neoplasm of prostate
CPT/HCPCS: 80053

== ENCOUNTER → 2018-05-29 | Outpatient (CLI) | payer BC ==
[2018-05-29 10:26] LABS: PROSTATIC SPECIFIC AG MONITOR < 0.01 NG/ML (< 4.0)
== END ==
LOC: M WUC 08:21
DX: Z85.46 Personal history of malignant neoplasm of prostate (principal)
CPT/HCPCS: 84153

== ENCOUNTER 2018-06-19 16:10 | Emergency (ER) | payer BC ==
[2018-06-19] MEDS: LORazepam 2 MG/ML VIAL (J2060) IV ×2 (18:14→19:31)
[2018-06-19] MEDS: MECLIZINE 25 MG TABLET PO (18:14)
== END 2018-06-19 20:35 | disposition home or self-care (01) ==
LOC: M ED 16:10
DX: H81.10 Benign paroxysmal vertigo, unspecified ear (principal); I12.9 Hypertensive chronic kidney disease with stage 1 through stage 4 chronic kidney disease, or unspecified chronic kidney disease; N18.9 Chronic kidney disease, unspecified; Z85.46 Personal history of malignant neoplasm of prostate; Z88.8 Allergy status to other drugs, medicaments and biological substances; Z88.6 Allergy status to analgesic agent; Z79.899 Other long term (current) drug therapy
CPT/HCPCS: J2060

== ENCOUNTER → 2018-09-03 | Outpatient (CLI) | payer BC ==
[2018-09-03 09:42] LABS: PROSTATIC SPECIFIC AG MONITOR < 0.0 NG/ML (< 4.0)
== END ==
LOC: M WUC 08:04
DX: Z85.46 Personal history of malignant neoplasm of prostate (principal)
CPT/HCPCS: 84153

== ENCOUNTER → 2018-11-27 | Outpatient (CLI) | payer BC ==
[~2018-11-27] MED LIST changes: +ATIV1TAB7 PO; +MECL1CHW2 PO; +ONDA4TAB6 PO
== END ==
LOC: M WUC 08:07
PROVIDERS: ATTEND Nurse Practitioner Women's Health
DX: Z85.46 Personal history of malignant neoplasm of prostate (principal)

== ENCOUNTER → 2019-03-20 | Outpatient (CLI) | payer BC ==
[~2019-03-20] MED LIST changes: +MECL1CHW PO; -MECL1CHW2 PO
[2019-03-20 09:38] LABS: ALBUMIN 3.2 GM/DL (3.2-5.2); BILIRUBIN,TOTAL 1.2 MG/DL (0.2-1.0); CALCIUM LEVEL 8.9 MG/DL (8.8-10.2); CHOLESTEROL RISK RATIO 4.736 (<5); CREATININE FOR GFR 1.44 MG/DL (0.70-1.30); GLOMERULAR FILTRATION RATE 52.3 (>49); PROSTATIC SPECIFIC AG MONITOR 0.09 NG/ML (< 4.00)
== END ==
LOC: M WUC 08:04
PROVIDERS: ATTEND Nurse Practitioner Family
DX: C61 Malignant neoplasm of prostate (principal); I10 Essential (primary) hypertension

== ENCOUNTER 2019-06-14 17:45 | Emergency (ER) | payer BC ==
[~2019-06-14] VITALS: Ht 172.7 cm; Wt 106.0 kg
[2019-06-14] MEDS ORDERED: TRAM50TA2 (18:10)
[2019-06-14] MEDS ORDERED: TIZA4TAB4 (18:10)
[2019-06-14] MEDS ORDERED: diazePAM 10 MG/2 ML INJ (J3360) IV ONE (18:30)
--- NOTE | 2019-06-14 19:22 | REPVR ---
PROCEDURE INFORMATION: Exam: CT Chest Without Contrast Exam date and time: 06/14/2019 6:37 PM Clinical history: 69 years old, male; Pain; Other: Rib; Additional info: Right posterior rib pain TECHNIQUE: Imaging protocol: Computed tomography of the chest without contrast. 3D rendering: MIP reconstructed images were created and reviewed. Radiation optimization: All CT scans at this facility use at least one of these dose optimization techniques: automated exposure control; mA and/or kV adjustment per patient size (includes targeted exams where dose is matched to clinical indication); or iterative reconstruction. COMPARISON: CR PORTABLE CHEST X-RAY 01/17/2017 6:58 AM FINDINGS: Lungs: Linear atelectasis and/or scar in the lung bases. No pulmonary consolidation. Pleural space: Unremarkable. No pneumothorax. No pleural effusion. Heart: Minimal coronary atherosclerosis. Aorta: Mild atherosclerosis of the thoracic aorta. No aneurysm. Lymph nodes: Unremarkable. No enlarged lymph nodes. Bones/joints: No fracture or focal rib lesion. Degenerative spondylosis of the thoracic spine. Soft tissues: Unremarkable. IMPRESSION: 1. Linear atelectasis and/or scar in the lung bases. 2. Degenerative spondylosis of the thoracic spine. 3. No fracture or focal rib lesion. If there is a concern for occult skeletal abnormality then consider followup evaluation with radionuclide bone scan. Electronically signed by: Go Islas On 06/14/2019 19:22:20 PM
[2019-06-14] MEDS ORDERED: VALI2TAB PO (19:52)
[2019-06-14] MEDS ORDERED: diazePAM 2 MG TAB PO SCH (20:00)
[2019-06-14 20:19] VITALS: BP 135/87
== END 2019-06-14 20:25 | disposition home or self-care (01) ==
LOC: M ED 17:45
DX: M62.830 Muscle spasm of back (principal); I12.9 Hypertensive chronic kidney disease with stage 1 through stage 4 chronic kidney disease, or unspecified chronic kidney disease; N18.9 Chronic kidney disease, unspecified; Z79.899 Other long term (current) drug therapy; Z88.8 Allergy status to other drugs, medicaments and biological substances
CPT/HCPCS: 71250; 80047; 96374; 99284; J3360

== ENCOUNTER → 2019-07-01 | Outpatient (CLI) | payer BC ==
[~2019-07-01] MED LIST changes: +TIZA4TAB4; +TRAM50TA2; +VALI2TAB PO
== END ==
LOC: M WUC 08:07
PROVIDERS: ATTEND Nurse Practitioner Women's Health
DX: Z85.46 Personal history of malignant neoplasm of prostate (principal)

== ENCOUNTER → 2019-07-25 | Outpatient (CLI) | payer BC ==
--- NOTE | 2019-07-28 09:02 | RADONC ---
RADIATION ONCOLOGY CONSULTATION NOTE DATE: 07/25/2019 CHART NUMBER: [id number] DIAGNOSIS: Prostate cancer. STAGE: IIIB, T3a,N0,M0, initial PSA 4.17, [place] score 8 (3-5), grade group 4. ECOG PERFORMANCE STATUS: 0. CONSULTATION NOTE: Mr. 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 HISTORY OF PRESENT ILLNESS: The patient was in his usual state of health and was found to have a PSA level of 4.17 on October 14, 2016. On 01/16/2017 the patient underwent a robotic-assisted radical prostatectomy and pelvic lymph node sampling. Pathology revealed a poorly differentiated [place] score 8 (3-5) adenocarcinoma of the prostate. It was noted that some [place] pattern 4 was there potentially increasing the total [place] score to 9. The tumor involved the bilateral prostate and occupies 30% of the right gland and 10% of the left prostate. Perineural invasion was noted. No extracapsular extension was noted. The pattern of Andrez 5 tumor extended to the bladder neck smooth muscle. No seminal and vesical involvement was seen. A total of one right pelvic lymph node was sampled and was negative for malignancy and three left pelvic lymph nodes were sampled and were also negative for malignancy. The patient therefore was staged as having a pathologic T3a, N0, M0 poorly differentiated adenocarcinoma of prostate. Since his surgery he has been followed with routine PSAs which had been running less than 0.01 from 02/17/[address] until 11/27/2018 when it had raised up to 0.04. Three months later on 03/20/2019 it had risen to 0.09 and on 07/01/2019 it had reached a level of 0.23. 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 He is now presenting to us for consideration of definitive external beam radiation therapy. PAST MEDICAL HISTORY: The patient's past medical history is positive for hypertension, shingles, cellulitis, hyperlipidemia, as well as his prostate cancer. He has had his hernia repair in the past. ALLERGIES: The patient is allergic to LISINOPRIL. SOCIAL HISTORY: The patient does not smoke cigarettes nor abuse alcohol. FAMILY HISTORY: The patient's family history is positive for father with prostate cancer and brother with non-Hodgkin's lymphoma. REVIEW OF SYSTEMS: The patient's review of systems is noncontributory. He denies nausea, vomiting, fevers, chills, night sweats, diplopia, headaches, anxiety or depression, anorexia, weight loss, visual disturbances, chest pain, urinary or bowel difficulties, bone pain, or neurological problems. PHYSICAL EXAMINATION: The patient is a well-developed, well-nourished male in no acute distress. HEENT exam is normocephalic, atraumatic. Extraocular movements are intact. There is no palpable cervical, supraclavicular, infraclavicular, axillary, or inguinal lymphadenopathy present. Lungs are clear to auscultation and percussion. Heart has a regular rate and rhythm. Abdomen is benign with no hepatosplenomegaly, masses, or tenderness. Rectal examination reveals a normal anal sphincter tone. His prostate bed is smooth with no evidence of nodularity. Skeletal examination reveals no tenderness to pressure or percussion of the bony skeleton. Extremities reveal no clubbing, cyanosis, or edema. Neurologic exam is grossly intact as is the remainder of the physical examination. ASSESSMENT: Clearly the patient is a candidate for external beam radiation therapy and I have so informed him. I have discussed with the patient in detail the potential benefits as well as possible acute and chronic sequelae of external beam radiation therapy. We have discussed the logistics of treatment planning, simulation and subsequent fractionated daily radiation treatments. I have scheduled the patient for the next available simulation slot and radiation treatments will begin subsequently. Thank you for allowing us to participate in the care of this very pleasant gentleman. If I could be of any further assistance or provide you with any information, please feel free to contact me anytime. cc: Juan Redmond MD
== END ==
LOC: M ONCR 09:33
PROVIDERS: ATTEND Radiology Radiation Oncology
DX: C61 Malignant neoplasm of prostate (principal)

== ENCOUNTER 2019-08-20 10:04 | Outpatient (RCR) | payer BC ==
[2019-08-06 11:31] LABS: BASO # 0.1 10^3/uL (0.0-0.2); BASO % 1.1 % (0.0-1.0); EOS # 0.9 10^3/uL (0.0-0.5); EOS % 6.9 % (0.0-3.0); HEMATOCRIT 46.9 % (42.0-52.0); HEMOGLOBIN 15.3 g/dl (13.5-17.5); LYMPH # 3.7 10^3/uL (1.5-5.0); LYMPH % 30.1 % (24.0-44.0); MEAN CORPUSCULAR HEMOGLOBIN 28.1 pg (27.0-33.0); MEAN CORPUSCULAR HGB CONC 32.6 g/dl (32.0-36.5); MEAN CORPUSCULAR VOLUME 86.1 fl (80.0-96.0); MONO # 1.2 10^3/uL (0.0-0.8); NEUTROPHILS # 6.4 10^3/uL (1.5-8.5); NEUTROPHILS % 51.6 % (36.0-66.0); PLATELET COUNT, AUTOMATED 233 10^3/uL (150-450); RED BLOOD COUNT 5.45 10^6/uL (4.30-6.10); WHITE BLOOD COUNT 12.4 10^3/uL (4.0-10.0)
--- NOTE | 2019-08-06 13:05 | RADONC ---
RADIATION ONCOLOGY SIMULATION NOTE DATE: 08/06/2019 CHART NUMBER: [id number] SIMULATION NOTE: Mr. Eaton was taken to the CT scan for CT simulation of his prostate bed field. CT was accomplished without difficulty or discomfort. Radiation treatment planning is underway and radiation treatments will begin subsequently. An immobilization device was created and will be used throughout the course of treatment. It was created without difficulty or discomfort. I was physically present throughout the course CT simulation.
--- NOTE | 2019-08-20 07:22 | RADONC ---
RADIATION ONCOLOGY PROGRESS NOTE DATE: 08/18/2019 CHART NUMBER: [id number] Mr. Eaton is presently at a dose of 540 cGy to his prostate bed and is tolerating treatments quite well at this point with no complaints related to his radiation therapy. He is having no urinary or bowel difficulties and no bone pain. REVIEW OF SYSTEMS; The patient's review of systems is noncontributory. He denies nausea, vomiting, fevers, chills, night sweats, diplopia, headaches, anxiety or depression, anorexia, weight loss, visual disturbances, chest pain, urinary or bowel difficulties, bone pain or neurological problems. PHYSICAL EXAMINATION The patient's skin is in good condition with no evidence of radiation change present. There is no moist or dry desquamation. The remainder of his physical exam remains unchanged. Mr. Eaton is tolerating treatments quite well and radiation will continue as scheduled.
== END 2019-08-23 ==
LOC: M ONCR 10:04
PROVIDERS: ATTEND Radiology Radiation Oncology
DX: C61 Malignant neoplasm of prostate (principal)

== ENCOUNTER → 2019-09-23 | Outpatient (RCR) | payer OTHER, BC ==
--- NOTE | 2019-08-26 12:07 | RADONC ---
RADIATION ONCOLOGY TREATMENT NOTE DATE OF SERVICE: 08/26/2019 Mr. Eaton carries a diagnosis of prostate CA. He underwent a prostatectomy in 2017 and was found to have slightly rising PSA to 0.213 and he is receiving radiation therapy to his prostatic bed. So far, he has received a dose of 1260cGy in 7 fractions. He has no complaints. He denies urinary frequency or dysuria. Nocturia once to twice. He denies any bone pain. Overall, he is tolerating treatment very well without side effect. Radiation therapy will continue as planned. MTDD
--- NOTE | 2019-09-01 13:20 | RADONC ---
RADIATION ONCOLOGY DATE OF SERVICE: 09/01/2019 CHART NUMBER: [id number]. Mr. Dixon is presently a dose of 1980 cGy to his prostate bed and is tolerating treatments quite well at this point with no complaints related to his radiation therapy. He is having no urinary or bowel difficulties. No bone pain. REVIEW OF SYSTEMS: The patient's review of systems is noncontributory. He denies nausea, vomiting, fevers, chills, night sweats, diplopia, headaches, anxiety or depression, anorexia, weight loss, visual disturbances, chest pain, urinary or bowel difficulties, bone pain, or neurological problems. PHYSICAL EXAMINATION: The patient's skin is in good condition with no evidence of moist or dry desquamation. The remainder of his physical exam remains unchanged. Mr. Dixon is tolerating treatments quite well, and radiation will continue as scheduled.
--- NOTE | 2019-09-10 06:36 | RADONC ---
RADIATION ONCOLOGY PROGRESS NOTE DATE: 09/08/2019 CHART #: [id number] Mr. Eaton is presently at a dose of 2880 cGy to his prostate bed and is tolerating treatments quite well at this point with no complaints related to his radiation therapy. He is having no urinary or bowel difficulties. No bone pain. REVIEW OF SYSTEMS: The patient's review of systems is absolutely noncontributory. Denies nausea, vomiting, fevers, chills, night sweats, diplopia, headaches, anxiety or depression, anorexia, weight loss, visual disturbances, chest pain, urinary or bowel difficulties, bone pain, or neurological problems. PHYSICAL EXAMINATION: The patient's skin is in good condition with no evidence of radiation change present. There is no moist or dry desquamation. The remainder of his physical exam remains unchanged. Mr. Eaton is tolerating treatments quite well and radiation will continue as scheduled.
--- NOTE | 2019-09-19 08:55 | RADONC ---
RADIATION ONCOLOGY PROGRESS NOTE DATE: 09/15/2019 CHART NUMBER: [id number] PROGRESS NOTE: Mr. aEton with a diagnosis of adenocarcinoma of prostate stage III B, [id number] is currently receiving radiotherapy and has achieved a dose thus far of 3780 cGy of an anticipated 7920 cGy. His treatments are going relatively well as he denies any significant nausea, vomiting, diarrhea, dysuria, hematuria or blood per rectum. His energy level is somewhat diminished but he is still able to maintain most day-to-day activities without any alteration of his lifestyle. Skin irritation is denied. EXAMINATION FINDINGS: The skin within the irradiated volume shows neither erythema nor desquamation. There is no palpable peripheral lymphadenopathy. Lungs are clear. Heart: Regular without murmurs. The remainder of the physical examination is unchanged. IMPRESSION: Tolerating therapy well. PLAN: Treatments to continue. MTDD
--- NOTE | 2019-09-22 13:46 | RADONC ---
RADIATION ONCOLOGY PROGRESS NOTE DATE: 09/22/2019 CHART NUMBER: [id number] Mr. Eaton with a diagnosis of malignant neoplasm of the prostate stage [id number] is currently receiving local regional radiotherapy and tolerating his radiotherapy quite well. He is currently at a dose of 4320 cGy. He is tolerating his radiotherapy reasonably well, denying any nausea, vomiting, diarrhea, dysuria, hematuria or blood per rectum. His energy level is such that he is able to maintain most day-to-day activities without any alteration of his lifestyle. Skin irritation is denied. EXAMINATION FINDINGS: The skin within the irradiated volume shows neither erythema nor desquamation. There is no palpable peripheral lymphadenopathy noted in the cervical, supraclavicular, axillary or inguinal lymph node chains. The remainder of the physical examination is unchanged. IMPRESSION: Tolerating therapy well. PLAN: Treatments to continue. Thank you for allowing us the opportunity of participation in the management of this patient.
== END ==
LOC: M ONCR 08-25 09:52
PROVIDERS: ATTEND Radiology Radiation Oncology
DX: C61 Malignant neoplasm of prostate (principal)

== ENCOUNTER 2019-10-10 10:00 | Outpatient (RCR) | payer OTHER, BC ==
--- NOTE | 2019-09-30 06:53 | RADONC ---
RADIATION ONCOLOGY PROGRESS NOTE DATE: 09/29/2019 CHART #: [id number] Mr. Eaton is presently at a dose of 5040 cGy to his prostate bed and is tolerating treatments quite well at this point with no complaints related to the radiation therapy. He is having no urinary or bowel difficulties and no bone pain. REVIEW OF SYSTEMS: The patient's review of systems is noncontributory. Denies nausea, vomiting, fevers, chills, night sweats, diplopia, headaches, anxiety or depression, anorexia, weight loss, visual disturbances, chest pain, urinary or bowel difficulties, bone pain, or neurological problems. PHYSICAL EXAMINATION: The patient's skin is in good condition with no evidence of moist or dry desquamation. The remainder of his physical exam remains unchanged. Mr. Eaton is tolerating treatments quite well and radiation will continue as scheduled.
--- NOTE | 2019-10-07 08:44 | RADONC ---
RADIATION ONCOLOGY PROGRESS NOTE DATE: 10/06/2019 CHART NUMBER: [id number] Mr. Eaton is presently at a dose of 5940 cGy and is tolerating treatments quite well at this point with no complaints related to his radiation therapy. He is having no urinary or bowel difficulties and no bone pain. The patient's review of systems is noncontributory. He denies nausea, vomiting, fevers, chills, night sweats, diplopia, headaches, anxiety or depression, anorexia, weight loss, visual disturbances, chest pain, urinary or bowel difficulties, bone pain, or neurological problems. PHYSICAL EXAMINATION: The patient's skin is in good condition with no evidence of radiation change present. There is no moist or dry desquamation. The remainder of his physical exam remains unchanged. Mr. Eaton is tolerating treatments quite well and radiation will continue as scheduled.
--- NOTE | 2019-10-12 10:44 | RADONC ---
RADIATION ONCOLOGY TREATMENT SUMMARY DATE: 10/10/2019 CHART NUMBER: [id number] DIAGNOSIS: Prostate cancer. STAGE: IIIB, [id number], [place] score 8 (3-5), grade group 4, initial PSA 4.17. ECOG PERFORMANCE STATUS: 0 TREATMENT SUMMARY: Mr. Eaton is a very pleasant 69-year-old white male with the diagnosis of what appears to be a stage IIIB, [id number], PSA score 4.17, poorly differentiated [place] score 8 (3-5) adenocarcinoma of prostate, grade group 4, who presented to us status post robotic-assisted radical prostatectomy and pelvic lymph node sampling for consideration of postoperative radiation therapy for biochemical failure. We treated the patient to his prostate bed for a total dose of 6660 cGy delivered in 37 fractions of 180 cGy each over 55 elapsed days from 08/14/2019 through 10/10/2019. The patient's prostate bed was treated on a linear accelerator utilizing a 3D conformal technique with 15 mV photon beams. Anterior, posterior, left and right lateral clifford were utilized. We initially treated a larger area to dose of 4500 cGy and subsequently coned down to deliver the remaining 2160 cGy in order to maintain the small bowel and other structures within their tolerance limits. Mr. Eaton tolerated his treatments quite well with no significant difficulties related to his radiation therapy. I have scheduled the patient see me again in 1 month for further followup. He will also continue to be followed closely by his other physicians as well. cc: Juan Redmond MD
== END 2019-10-24 ==
LOC: M ONCR 10:00
PROVIDERS: ATTEND Radiology Radiation Oncology
DX: C61 Malignant neoplasm of prostate (principal)

== ENCOUNTER → 2019-11-18 | Outpatient (CLI) | payer OTHER | LOC: M WUC 10:09 | PROVIDERS: ATTEND Urology | DX: C61 Malignant neoplasm of prostate (principal) ==

== ENCOUNTER → 2019-11-19 | Outpatient (CLI) | payer OTHER ==
--- NOTE | 2019-11-20 11:10 | RADONC ---
RADIATION ONCOLOGY FOLLOWUP NOTE DATE: 11/19/2019 CHART #: [id number] DIAGNOSIS: Prostate cancer. STAGE: III B, T3a, N0, M0, initial PSA 14.17, Andrez score 8 (3-5), grade group 4. ECOG PERFORMANCE STATUS: 0. FOLLOWUP NOTE: Mr. Eaton is a very pleasant 69-year-old white male with the diagnosis of what appears to be a stage III B, T3a, N0, M0, PSA score 4.17, poorly differentiated [place] score 8 (3-5) adenocarcinoma of the prostate, grade group 4, who is presenting to us today for routine followup visit 1 month post completion of external beam radiation therapy. The patient presents today reporting that he is doing quite well with no complaints at this time related to his radiation therapy or disease. He is having no urinary or bowel difficulties and no bone pain. REVIEW OF SYSTEMS: The patient's review of systems is noncontributory. Denies nausea, vomiting, fevers, chills, night sweats, diplopia, headaches, anxiety or depression, anorexia, weight loss, visual disturbances, chest pain, urinary or bowel difficulties, bone pain, or neurological problems. PHYSICAL EXAMINATION: The patient is a well-developed, well-nourished male in no acute distress. HEENT exam is normocephalic, atraumatic. Extraocular movements are intact. There is no palpable cervical, supraclavicular, infraclavicular, axillary, or inguinal lymphadenopathy present. Lungs are clear to auscultation and percussion. Heart has a regular rate and rhythm. Abdomen is benign with no hepatosplenomegaly, masses, or tenderness. Rectal examination reveals a normal anal sphincter tone. His prostate bed is smooth with no evidence of nodularity. Skeletal examination reveals no tenderness to pressure or percussion of the bony skeleton. Extremities reveal no clubbing, cyanosis, or edema. Neurologic exam is grossly intact, as is the remainder of the physical examination. ASSESSMENT: The patient is clinically RAYMUNDO at this time. He is being seen routinely by his urologist Dr. Redmond and is therefore being discharged from my followup except on a p.r.n. basis. Dr. Redmond will continue to manage his present situation. cc: Juan Redmond MD
== END ==
LOC: M ONCR 10:35
PROVIDERS: ATTEND Radiology Radiation Oncology
DX: Z85.46 Personal history of malignant neoplasm of prostate (principal); Z92.3 Personal history of irradiation

== ENCOUNTER → 2019-12-24 | Outpatient (REF) | payer OTHER | LOC: M SMT 16:46 | PROVIDERS: ATTEND Urology | DX: N39.0 Urinary tract infection, site not specified (principal) ==

== ENCOUNTER → 2020-02-17 | Outpatient (CLI) | payer OTHER | LOC: M WUC 08:51 | PROVIDERS: ATTEND Urology | DX: C61 Malignant neoplasm of prostate (principal) ==

== ENCOUNTER → 2020-05-18 | Outpatient (CLI) | payer OTHER ==
[~2020-05-18] MED LIST changes: +ACET650T61 PO; -TYLE650T35 PO
== END ==
LOC: M WUC 08:05
PROVIDERS: ATTEND Urology
DX: C61 Malignant neoplasm of prostate (principal)

== ENCOUNTER → 2020-09-14 | Outpatient (CLI) | payer OTHER | LOC: M WUC 08:07 | PROVIDERS: ATTEND Urology | DX: C61 Malignant neoplasm of prostate (principal) ==

== ENCOUNTER → 2020-11-11 | Outpatient (CLI) | payer OTHER ==
[~2020-11-11] MED LIST changes: +LISI10TA22 PO; -LISI10TA4 PO
== END ==
LOC: M WUC 08:02
PROVIDERS: ATTEND Urology
DX: C61 Malignant neoplasm of prostate (principal)

== ENCOUNTER → 2021-02-22 | Outpatient (REF) | payer OTHER | LOC: M WUC 15:49 | PROVIDERS: ATTEND Urology | DX: C61 Malignant neoplasm of prostate (principal) ==

== ENCOUNTER → 2021-05-26 | Outpatient (CLI) | payer OTHER | LOC: M WUC 09:09 | PROVIDERS: ATTEND Urology | DX: C61 Malignant neoplasm of prostate (principal) ==

== ENCOUNTER → 2021-08-30 | Outpatient (CLI) | payer OTHER | LOC: M WUC 08:08 | PROVIDERS: ATTEND Urology | DX: C61 Malignant neoplasm of prostate (principal) ==

== ENCOUNTER → 2021-11-28 | Outpatient (CLI) | payer OTHER ==
[~2021-11-28] MED LIST changes: +TIZA10TA; -TIZA4TAB4
== END ==
LOC: M WUC 08:05
PROVIDERS: ATTEND Urology
DX: C61 Malignant neoplasm of prostate (principal)

== ENCOUNTER 2022-01-26 04:47 | Emergency (ER) | payer OTHER ==
[~2022-01-26] VITALS: Ht 172.7 cm; Wt 106.8 kg
[2022-01-26 05:28] LABS: BASO # 0.1 10^3/uL (0.0-0.2); BASO % 0.6 % (0.0-1.0); EOS # 0.2 10^3/uL (0.0-0.5); EOS % 1.3 % (0.0-3.0); HEMATOCRIT 45.6 % (42.0-52.0); HEMOGLOBIN 15.5 g/dl (13.5-17.5); LYMPH # 1.3 10^3/uL (1.5-5.0); LYMPH % 11.3 % (24.0-44.0); MEAN CORPUSCULAR VOLUME 85.4 fl (80.0-96.0); MONO # 0.8 10^3/uL (0.0-0.8); MONO % 6.9 % (2.0-8.0); NEUTROPHILS % 79.5 % (36.0-66.0); PLATELET COUNT, AUTOMATED 197 10^3/uL (150-450); RED BLOOD COUNT 5.34 10^6/uL (4.30-6.10); WHITE BLOOD COUNT 11.3 10^3/uL (4.0-10.0)
[2022-01-26 05:41] LABS: INR 0.98; PROTHROMBIN TIME 13.4 SECONDS (12.7-14.5)
[2022-01-26 05:51] LABS: MB/CK RELATIVE INDEX 2.35 (< OR =4)
[2022-01-26 06:03] LABS: ALBUMIN 3.3 GM/DL (3.2-5.2); BILIRUBIN,DIRECT 1.2 MG/DL (0.0-0.2); CALCIUM LEVEL 9.3 MG/DL (8.8-10.2); CREATININE FOR GFR 1.35 MG/DL (0.70-1.30); GLOMERULAR FILTRATION RATE 55.8 (>49); POTASSIUM SERUM 3.9 MEQ/L (3.5-5.1); TOTAL PROTEIN 7.2 GM/DL (6.4-8.2)
[2022-01-26] MEDS ORDERED: NS 1,000 ML IV ONE (06:30)
[2022-01-26] MEDS ORDERED: GI COCKTAIL 50ML BTL(HYOSCYAMINE/MAALOX/LIDOCAINE VISCOUS)(1:3:1) PO ONE (06:40)
[2022-01-26] MEDS ORDERED: ISOVUE-370 76% 100ML VIAL As Ordered ONE (06:47)
[2022-01-26] MEDS ORDERED: PANTOPRAZOLE 40MG VIAL IV ONE (07:00)
[2022-01-26] MEDS ORDERED: atenoloL 25 MG TAB PO ONE (07:55)
[2022-01-26 11:56] VITALS: BP 174/96
== END 2022-01-26 11:58 | disposition home or self-care (01) ==
LOC: M ED 04:47
DX: R10.13 Epigastric pain (principal); K82.8 Other specified diseases of gallbladder; I50.810 Right heart failure, unspecified; I70.90 Unspecified atherosclerosis; K76.0 Fatty (change of) liver, not elsewhere classified; N20.0 Calculus of kidney; I10 Essential (primary) hypertension; Z85.46 Personal history of malignant neoplasm of prostate; Z88.8 Allergy status to other drugs, medicaments and biological substances; Z79.899 Other long term (current) drug therapy
CPT/HCPCS: 71045; 71275; 74177; 76705; 80048; 80076; 82550; 82553; 83690; 83880; 84484; 85025; 85610; 93005; 93041; 94760; 96361; 96374; 99285; C9113; Q9967

== ENCOUNTER → 2022-02-28 | Outpatient (REF) | payer OTHER | LOC: M WUC 09:31 | PROVIDERS: ATTEND Urology | DX: C61 Malignant neoplasm of prostate (principal) ==

== ENCOUNTER → 2022-03-08 | Outpatient (REF) | payer OTHER ==
[2022-03-08 17:22] LABS: ALBUMIN 3.6 GM/DL (3.2-5.2); BILIRUBIN,DIRECT 0.2 MG/DL (0.0-0.2); BILIRUBIN,TOTAL 0.5 MG/DL (0.2-1.0); TOTAL PROTEIN 7.8 GM/DL (6.4-8.2)
== END ==
LOC: M WUC 15:42
PROVIDERS: ATTEND Surgery
DX: K80.00 Calculus of gallbladder with acute cholecystitis without obstruction (principal)

== ENCOUNTER → 2022-04-13 | Outpatient (CLI) | payer OTHER | LOC: M CARPUL 08:52 | PROVIDERS: ATTEND Internal Medicine Cardiovascular Disease | DX: I51.7 Cardiomegaly (principal); R60.0 Localized edema; R06.02 Shortness of breath ==

== ENCOUNTER → 2022-04-14 | Outpatient (CLI) | payer OTHER ==
[2022-04-14 12:47] LABS: ALBUMIN 3.8 GM/DL (3.2-5.2); BILIRUBIN,TOTAL 0.9 MG/DL (0.2-1.0); CALCIUM LEVEL 9.8 MG/DL (8.8-10.2); CHOLESTEROL RISK RATIO 3.05 (<5); CREATININE FOR GFR 1.64 MG/DL (0.70-1.30); GLOMERULAR FILTRATION RATE 44.6 (>49); POTASSIUM SERUM 4.3 MEQ/L (3.5-5.1); TOTAL PROTEIN 8.1 GM/DL (6.4-8.2)
== END ==
LOC: M WUC 07:59
PROVIDERS: ATTEND Internal Medicine Cardiovascular Disease
DX: R07.2 Precordial pain (principal); I51.7 Cardiomegaly; R60.0 Localized edema; R06.02 Shortness of breath

== ENCOUNTER → 2022-05-01 | Outpatient (CLI) | payer OTHER ==
[2022-05-01 10:36] LABS: CALCIUM LEVEL 9.6 MG/DL (8.8-10.2); CREATININE FOR GFR 1.56 MG/DL (0.70-1.30); GLOMERULAR FILTRATION RATE 47.1 (>42); POTASSIUM SERUM 3.8 MEQ/L (3.5-5.1)
== END ==
LOC: M WUC 07:57
PROVIDERS: ATTEND Physician Assistant
DX: I11.9 Hypertensive heart disease without heart failure (principal)

== ENCOUNTER → 2022-05-30 | Outpatient (CLI) | payer OTHER | LOC: M WUC 08:01 | PROVIDERS: ATTEND Urology | DX: C61 Malignant neoplasm of prostate (principal) ==

== ENCOUNTER → 2022-06-15 | Outpatient (CLI) | payer OTHER ==
[2022-06-15 11:06] LABS: HEMOGLOBIN 14.8 g/dl (13.5-17.5); MEAN CORPUSCULAR HEMOGLOBIN 28.9 pg (27.0-33.0); MEAN CORPUSCULAR HGB CONC 32.9 g/dl (32.0-36.5); MEAN CORPUSCULAR VOLUME 87.9 fl (80.0-96.0); PLATELET COUNT, AUTOMATED 244 10^3/uL (150-450); RED BLOOD COUNT 5.12 10^6/uL (4.30-6.10); WHITE BLOOD COUNT 12.6 10^3/uL (4.0-10.0)
[2022-06-15 11:32] LABS: ALBUMIN 3.6 GM/DL (3.2-5.2); CALCIUM LEVEL 9.5 MG/DL (8.8-10.2); CREATININE FOR GFR 1.39 MG/DL (0.70-1.30); GLOMERULAR FILTRATION RATE 53.8 (>42); PHOSPHORUS LEVEL 3.2 MG/DL (2.5-4.9); POTASSIUM SERUM 3.9 MEQ/L (3.5-5.1)
== END ==
LOC: M WUC 08:04
PROVIDERS: ATTEND Internal Medicine Cardiovascular Disease
DX: Z79.899 Other long term (current) drug therapy (principal)

== ENCOUNTER → 2022-08-10 | Outpatient (REF) | payer OTHER ==
[2022-08-10 18:57] LABS: APPEARANCE, URINE MANUAL CLEAR (CLEAR); COLOR, URINE MANUAL YELLOW (YELLOW)
[2022-08-10 19:07] LABS: BILIRUBIN, URINE MANUAL NEGATIVE (NEGATIVE); BLOOD URINE MANUAL POSITIVE (NEGATIVE); GLUCOSE, URINE (UA) MANUAL NEGATIVE (NEGATIVE); KETONE, URINE MANUAL NEGATIVE (NEGATIVE); LEUKOCYTE ESTERASE, URINE MAN NEGATIVE (NEGATIVE); NITRITE, URINE MANUAL NEGATIVE (NEGATIVE); PROTEIN, URINE MANUAL 1+ mg/dL (NEGATIVE); UROBILINOGEN, URINE MANUAL NORMAL (NORMAL)
[2022-08-10 19:35] LABS: BACTERIA, URINE SMALL AMOUNT; HYALINE CAST, URINE NONE SEEN /lpf (0-1); RBC, URINE 0-1 /hpf (0-3); SQUAMOUS EPITHELIAL CELL URINE SMALL AMOUNT /hpf (SMALL AMT)
== END ==
LOC: M SMT 17:17
PROVIDERS: ATTEND Physician Assistant
DX: R30.0 Dysuria (principal)

== ENCOUNTER 2022-11-04 23:03 | Inpatient (IN) | payer OTHER ==
[~2022-11-04] VITALS: Ht 172.7 cm; Wt 96.0 kg
[2022-11-05] MEDS ORDERED: MECLIZINE 25 MG TABLET PO ONE ×2 (00:20→04:15)
[2022-11-05 00:48] LABS: CALCIUM LEVEL 9.3 MG/DL (8.3-10.6); CREATININE FOR GFR 1.29 MG/DL (0.70-1.30); GLOMERULAR FILTRATION RATE 58.6 (>42); MB/CK RELATIVE INDEX 1.96 (< OR =4); POTASSIUM SERUM 3.8 MMOL/L (3.5-5.1)
[2022-11-05 00:57] LABS: BASO # 0.1 10^3/uL (0.0-0.2); BASO % 0.6 % (0.0-1.0); EOS # 0.4 10^3/uL (0.0-0.5); EOS % 2.2 % (0.0-3.0); HEMOGLOBIN 14.6 g/dl (13.5-17.5); LYMPH # 1.5 10^3/uL (1.5-5.0); LYMPH % 8.7 % (24.0-44.0); MEAN CORPUSCULAR HEMOGLOBIN 28.8 pg (27.0-33.0); MEAN CORPUSCULAR HGB CONC 33.2 g/dl (32.0-36.5); MEAN CORPUSCULAR VOLUME 86.8 fl (80.0-96.0); MONO % 5.7 % (2.0-8.0); NEUTROPHILS # 14.5 10^3/uL (1.5-8.5); NEUTROPHILS % 82.3 % (36.0-66.0); PLATELET COUNT, AUTOMATED 201 10^3/uL (150-450); RED BLOOD COUNT 5.07 10^6/uL (4.30-6.10); WHITE BLOOD COUNT 17.7 10^3/uL (4.0-10.0)
[2022-11-05] MEDS ORDERED: diazePAM 10MG/2ML SYRINGE IV ONE (01:15)
[2022-11-05] MEDS ORDERED: ONDANSETRON 4MG 2ML VIAL IV ONE (01:15)
[2022-11-05 03:19] LABS: ALBUMIN 3.5 G/DL (3.2-5.2); BILIRUBIN,DIRECT 0.3 MG/DL (<0.4); BILIRUBIN,TOTAL 0.8 MG/DL (0.3-1.2); CK-MB VALUE MASS 2.9 NG/ML (<3.6); MB/CK RELATIVE INDEX 2.02 (< OR =4); TOTAL PROTEIN 7.2 G/DL (5.7-8.2)
[2022-11-05] MEDS ORDERED: LORazepam 2 MG/ML 1ML VIAL IV STA ×2 (04:53→10:10)
[2022-11-05] MEDS ORDERED: SPIR-10 PO (12:12)
[2022-11-05] MEDS ORDERED: ASPI81TA26 PO (12:12)
[2022-11-05] MEDS ORDERED: ATOR1TAB19 PO (12:12)
[2022-11-05] MEDS ORDERED: ATEN25TA PO (12:12)
[2022-11-05] MEDS ORDERED: CHLO125TA PO (12:12)
[2022-11-05] MEDS ORDERED: HOME MED LIST COMPLETE! XX SCH (12:15)
[2022-11-05] MEDS ORDERED: ACETAMINOPHEN TAB 650MG DOSE (2X325MG) PO PRN (12:50)
[2022-11-05] MEDS ORDERED: MECLIZINE 25 MG TABLET PO PRN (13:15)
[2022-11-05 13:52] LABS: RSV AMPLIFICATION NEGATIVE (NEGATIVE)
[2022-11-05 14:05] LABS: THYROID STIMULATING HORMONE 0.888 uIU/ML (0.55-4.78)
[2022-11-05] MEDS: atenoloL 25 MG TAB PO SCH (14:22)
[2022-11-05] MEDS: ATORVASTATIN 10 MG TAB PO SCH (14:23)
[2022-11-05] MEDS: ENOXAPARIN 40MG/0.4ML SYRINGE (J1650 PER 10MG) SC SCH (14:23)
[2022-11-05] MEDS: ASPIRIN 81MG ENTERIC TABLET PO SCH (14:23)
[2022-11-05 14:50] VITALS: BP 144/82
[2022-11-05 20:10] VITALS: BP 140/80
[2022-11-06 06:00] VITALS: BP 131/76
[2022-11-06 06:37] LABS: HEMATOCRIT 45.9 % (42.0-52.0); MEAN CORPUSCULAR HEMOGLOBIN 28.2 pg (27.0-33.0); MEAN CORPUSCULAR HGB CONC 32.7 g/dl (32.0-36.5); MEAN CORPUSCULAR VOLUME 86.4 fl (80.0-96.0); PLATELET COUNT, AUTOMATED 212 10^3/uL (150-450); RED BLOOD COUNT 5.31 10^6/uL (4.30-6.10)
[2022-11-06 07:04] LABS: ALBUMIN 3.4 G/DL (3.2-5.2); CREATININE FOR GFR 1.44 MG/DL (0.70-1.30); GLOMERULAR FILTRATION RATE 51.6 (>42); MAGNESIUM LEVEL 1.7 MG/DL (1.8-2.4); POTASSIUM SERUM 4.1 MMOL/L (3.5-5.1)
[2022-11-06] MEDS: ASPIRIN 81MG ENTERIC TABLET PO SCH (08:57)
[2022-11-06] MEDS: ENOXAPARIN 40MG/0.4ML SYRINGE (J1650 PER 10MG) SC SCH (08:58)
[2022-11-06] MEDS: atenoloL 25 MG TAB PO SCH (08:58)
[2022-11-06] MEDS: predniSONE 20 MG TAB PO SCH (08:58)
[2022-11-06] MEDS: ATORVASTATIN 10 MG TAB PO SCH (08:58)
[2022-11-06] MEDS ORDERED: CHLORTHALIDONE 12.5MG PER 1/2 TABLET PO SCH (09:00)
[2022-11-06 14:00] VITALS: BP 145/82
[2022-11-06 21:00] VITALS: BP 143/82
[2022-11-07 06:00] VITALS: BP 138/81
[2022-11-07 06:32] LABS: BASO % 0.1 % (0.0-1.0); HEMATOCRIT 45.2 % (42.0-52.0); HEMOGLOBIN 15.1 g/dl (13.5-17.5); LYMPH # 2.5 10^3/uL (1.5-5.0); LYMPH % 11.1 % (24.0-44.0); MEAN CORPUSCULAR HEMOGLOBIN 28.3 pg (27.0-33.0); MEAN CORPUSCULAR HGB CONC 33.4 g/dl (32.0-36.5); MEAN CORPUSCULAR VOLUME 84.8 fl (80.0-96.0); MONO # 1.4 10^3/uL (0.0-0.8); MONO % 6.1 % (2.0-8.0); NEUTROPHILS # 18.2 10^3/uL (1.5-8.5); NEUTROPHILS % 82.1 % (36.0-66.0); PLATELET COUNT, AUTOMATED 219 10^3/uL (150-450); RED BLOOD COUNT 5.33 10^6/uL (4.30-6.10); WHITE BLOOD COUNT 22.2 10^3/uL (4.0-10.0)
[2022-11-07 08:21] VITALS: BP 138/82
[2022-11-07] MEDS: ASPIRIN 81MG ENTERIC TABLET PO SCH (08:21)
[2022-11-07] MEDS: ENOXAPARIN 40MG/0.4ML SYRINGE (J1650 PER 10MG) SC SCH (08:21)
[2022-11-07] MEDS: predniSONE 20 MG TAB PO SCH (08:21)
[2022-11-07] MEDS: atenoloL 25 MG TAB PO SCH (08:21)
[2022-11-07] MEDS: ATORVASTATIN 10 MG TAB PO SCH (08:21)
[2022-11-07 08:39] LABS: ALBUMIN 3.3 G/DL (3.2-5.2); BILIRUBIN,TOTAL 1.1 MG/DL (0.3-1.2); CALCIUM LEVEL 9.8 MG/DL (8.3-10.6); CREATININE FOR GFR 1.31 MG/DL (0.70-1.30); GLOMERULAR FILTRATION RATE 57.6 (>42); MAGNESIUM LEVEL 1.6 MG/DL (1.8-2.4); POTASSIUM SERUM 3.7 MMOL/L (3.5-5.1)
[2022-11-07] MEDS ORDERED: SPIRONOLACTONE 12.5MG PER 1/2 TABLET PO SCH (09:00)
[2022-11-07] MEDS ORDERED: MECL-86 PO (10:45)
[2022-11-07] MEDS ORDERED: PRED20TA PO (10:45)
== END 2022-11-07 12:27 | disposition home or self-care (01) | DRG 111 ==
LOC: M ED 23:03 → M ED INP 11-05 12:50 → ENRESERV 11-05 14:23 → M MSPAV 11-05 14:47
PROVIDERS: ADMIT Family Medicine; ATTEND General Practice
DX: H81.399 Other peripheral vertigo, unspecified ear (principal); N18.30 Chronic kidney disease, stage 3 unspecified; I13.0 Hypertensive heart and chronic kidney disease with heart failure and stage 1 through stage 4 chronic kidney disease, or unspecified chronic kidney disease; M79.2 Neuralgia and neuritis, unspecified; Z92.3 Personal history of irradiation; Z85.46 Personal history of malignant neoplasm of prostate; Z79.82 Long term (current) use of aspirin; Z79.899 Other long term (current) drug therapy; Z88.8 Allergy status to other drugs, medicaments and biological substances; I50.30 Unspecified diastolic (congestive) heart failure; N17.9 Acute kidney failure, unspecified

== ENCOUNTER → 2022-11-16 | Outpatient (REF) | payer OTHER ==
[~2022-11-16] MED LIST changes: +ASPI81TA26 PO; +ATOR1TAB19 PO; +CHLO125TA PO; +MECL-86 PO; +PRED20TA PO; +SPIR-10 PO
== END ==
LOC: M LAB REF 16:15
PROVIDERS: ATTEND Physician Assistant Medical
DX: M10.9 Gout, unspecified (principal)

== ENCOUNTER → 2022-12-04 | Outpatient (CLI) | payer OTHER | LOC: M WUC 08:09 | PROVIDERS: ATTEND Urology | DX: C61 Malignant neoplasm of prostate (principal) ==

== ENCOUNTER → 2023-06-04 | Outpatient (CLI) | payer OTHER | LOC: M WUC 08:15 | PROVIDERS: ATTEND Urology | DX: C61 Malignant neoplasm of prostate (principal) ==

== ENCOUNTER → 2023-09-14 | Outpatient (CLI) | payer OTHER | LOC: M WUC 08:03 | PROVIDERS: ATTEND Urology | DX: C61 Malignant neoplasm of prostate (principal) ==

== ENCOUNTER → 2023-10-08 | Outpatient (CLI) | payer OTHER | LOC: M RAD 12:08 | PROVIDERS: ATTEND Physician Assistant | DX: I73.9 Peripheral vascular disease, unspecified (principal) ==

== ENCOUNTER → 2023-12-03 | Outpatient (REF) | payer OTHER | LOC: M LABWUC 10:21 | PROVIDERS: ATTEND Urology | DX: C61 Malignant neoplasm of prostate (principal) ==

== ENCOUNTER 2023-12-14 15:12 | Emergency (ER) | payer OTHER ==
[~2023-12-14] VITALS: Ht 172.7 cm; Wt 101.4 kg
[2023-12-14] MEDS ORDERED: DOXY100C3 PO (17:53)
[2023-12-14] MEDS: DOXYCYCLINE HYCLATE 100MG TABLET PO ONE (18:04)
[2023-12-14 18:35] VITALS: BP 160/87; TEMP 98.9; O2SAT 97
== END 2023-12-14 18:35 | disposition home or self-care (01) ==
LOC: M ED 15:12
DX: L03.113 Cellulitis of right upper limb (principal); I10 Essential (primary) hypertension; Z88.8 Allergy status to other drugs, medicaments and biological substances; Z79.82 Long term (current) use of aspirin; Z79.02 Long term (current) use of antithrombotics/antiplatelets; Z79.899 Other long term (current) drug therapy

== ENCOUNTER → 2024-03-05 | Outpatient (REF) | payer OTHER ==
[~2024-03-05] MED LIST changes: +DOXY100C3 PO; +ONDA-282 PO; -ONDA4TAB6 PO
== END ==
LOC: M LABWUC 09:57
PROVIDERS: ATTEND Urology
DX: C61 Malignant neoplasm of prostate (principal)

== ENCOUNTER → 2024-06-02 | Outpatient (CLI) | payer OTHER ==
[2024-06-02 14:16] LABS: ALBUMIN 3.7 G/DL (3.2-5.2); BILIRUBIN,DIRECT 0.4 MG/DL (<0.4); BILIRUBIN,TOTAL 1.1 MG/DL (0.3-1.2); CHOLESTEROL RISK RATIO 3.59 (<5); HDL CHOLESTEROL 35.6 MG/DL (>40); LDL CHOLESTEROL 71.6 MG/DL (<100); NON-HDL-C 92.4 MG/DL; TOTAL PROTEIN 7.4 G/DL (5.7-8.2)
== END ==
LOC: M WUC 09:44
PROVIDERS: ATTEND Physician Assistant
DX: E78.00 Pure hypercholesterolemia, unspecified (principal)

== ENCOUNTER → 2024-06-05 | Outpatient (CLI) | payer OTHER | LOC: M WUC 08:05 | PROVIDERS: ATTEND Urology | DX: C61 Malignant neoplasm of prostate (principal) ==

== ENCOUNTER → 2024-08-13 | Outpatient (CLI) | payer OTHER | LOC: M WUC 15:42 | PROVIDERS: ATTEND Physician Assistant Medical | DX: M54.2 Cervicalgia (principal); M47.812 Spondylosis without myelopathy or radiculopathy, cervical region ==

== ENCOUNTER → 2024-09-01 | Outpatient (CLI) | payer OTHER | LOC: M WUC 12:52 | PROVIDERS: ATTEND Physician Assistant | DX: S93.402A Sprain of unspecified ligament of left ankle, initial encounter (principal); S93.692A Other sprain of left foot, initial encounter; S82.832A Other fracture of upper and lower end of left fibula, initial encounter for closed fracture; X58.XXXA Exposure to other specified factors, initial encounter; Y92.9 Unspecified place or not applicable ==

== ENCOUNTER → 2024-10-02 | Outpatient (CLI) | payer MEDICARE | LOC: M WUC 10:19 | PROVIDERS: ATTEND Urology | DX: C61 Malignant neoplasm of prostate (principal) ==

== ENCOUNTER → 2024-10-02 | Outpatient (CLI) | payer MEDICARE ==
[2024-10-02 14:07] LABS: ALBUMIN 3.4 G/DL (3.2-5.2); BILIRUBIN,DIRECT 0.3 MG/DL (<0.4); BILIRUBIN,TOTAL 0.9 MG/DL (0.3-1.2); TOTAL PROTEIN 7.8 G/DL (5.7-8.2)
== END ==
LOC: M WUC 10:15
PROVIDERS: ATTEND Physician Assistant Medical
DX: R74.01 Elevation of levels of liver transaminase levels (principal)

== ENCOUNTER → 2024-10-21 | Outpatient (CLI) | payer MEDICARE | LOC: M RAD 08:27 | PROVIDERS: ATTEND Physician Assistant Medical | DX: K80.20 Calculus of gallbladder without cholecystitis without obstruction (principal); K76.0 Fatty (change of) liver, not elsewhere classified; R74.01 Elevation of levels of liver transaminase levels ==

== ENCOUNTER → 2025-01-01 | Outpatient (CLI) | payer MEDICARE | LOC: M WUC 08:06 | PROVIDERS: ATTEND Urology | DX: C61 Malignant neoplasm of prostate (principal) ==

== ENCOUNTER → 2025-04-02 | Outpatient (REF) | payer MEDICARE | LOC: M LABWUC 12:15 | PROVIDERS: ATTEND Urology | DX: C61 Malignant neoplasm of prostate (principal) ==

== ENCOUNTER → 2025-06-02 | Outpatient (CLI) | payer MEDICARE | LOC: M WUC 08:15 | PROVIDERS: ATTEND Urology | DX: C61 Malignant neoplasm of prostate (principal) ==

== ENCOUNTER → 2025-06-03 | Outpatient (CLI) | payer MEDICARE | LOC: M WUC 11:30 | PROVIDERS: ATTEND Urology | DX: C61 Malignant neoplasm of prostate (principal) ==

== ENCOUNTER → 2025-09-07 | Outpatient (CLI) | payer MEDICARE | LOC: M WUC 08:09 | PROVIDERS: ATTEND Urology | DX: C61 Malignant neoplasm of prostate (principal) ==